=== PATIENT | male | born 1995 | race Caucasian/White ===

== ENCOUNTER 2017-01-27 13:26 | Emergency (ER) | payer SELFPAY ==
[~2017-01-27] VITALS: Ht 182.9 cm; Wt 86.2 kg
--- NOTE | 2017-01-27 14:37 | ED GI ---
General Chief Complaint: Rect Problems Stated Complaint: RECTAL BLEEDING Nursing Triage Note: Pt reports streaks of blood in stool and when wiping after BM for past 3 days Sepsis Screen: No Definite Risk Source of Information: Patient Exam Limitations: No Limitations History of Present Illness Time Seen By Provider: 14:27 Initial Comments Here with report of blood on toilet paper when wiping and pain on the area of his body. The rectum. States he feels a bump or a bubble at the rectum. Onset after heavy lifting yesterday at work. Denies hard stools or problems going to the bathroom otherwise. Timing/Duration: 2-3 Days Severity/Quality: Mild Location: Other (rectum) Radiation: No Radiation Activities at Onset: None Modifying Factors: Worsens With Defecating, Improves With Resting Associated Symptoms: No Back Pain, No Chest Pain, No Fever/Chills, No Nausea/ Vomiting Allergies and Home Medications Allergies Coded Allergies: No Known Drug Allergies (Unverified , 07/30/14) Home Medications No Active Prescriptions or Reported Meds Review of Systems Constitutional: see HPI, No chills, No fever Respiratory: No Symptoms Reported Cardiovascular: No Symptoms Reported Gastrointestinal: See HPI, Rectal Bleeding, Other (description of hemorrhoid) Genitourinary: No Symptoms Reported Past Mqrvqny-Hvdnsd-Kvabxz Hx Patient Social History Alcohol Use: Denies Use Recreational Drug Use: No Smoking Status: Never a Smoker Type Used: Smokeless Tobacco Recent Foreign Travel: No Contact w/Someone Who Travel: No Recent Infectious Disease Expo: No Recent Hopitalizations: No Immunizations Up To Date Tetanus Booster (TDap): Less than 5yrs PED Vaccines UTD: Yes Seasonal Allergies Seasonal Allergies: No Surgeries HX Surgeries: No Respiratory Hx Respiratory Disorders: No Cardiovascular Hx Cardiac Disorders: No Neurological Hx Neurological Disorders: No Genitourinary Hx Genitourinary Disorders: No Gastrointestinal Hx Gastrointestinal Disorders: No Musculoskeletal Hx Musculoskeletal Disorders: No Endocrine Hx Endocrine Disorders: No HEENT HX ENT Disorders: No Cancer Hx Cancer: No Psychosocial Hx Psychiatric Problems: No Integumentary HX Skin/Integumentary Disorder: No Blood Transfusions Hx Blood Disorders: No Reviewed Nursing Assessment Reviewed/Agree w Nursing PMH: Yes Family Medical History Significant Family History: No Pertinent Family Hx Physical Exam Vital Signs VS - Last 72 Hours, by Label 01/27/17 13:51 Temp 98.5 Pulse 68 Resp 18 B/P (MAP) 135/80 Pulse Ox 100 O2 Delivery Room Air Capillary Refill : Less Than 3 Seconds General Appearance: WD/WN, no apparent distress Neck: full range of motion, supple Respiratory: lungs clear, normal breath sounds Cardiovascular: regular rate, rhythm, no murmur Gastrointestinal: non tender, soft Rectal: hemorrhoids, tenderness, other (hemorrhoid to the right lateral aspect with some residual bleeding. Tender overall.) Neurologic/Psychiatric: alert, oriented x 3 Skin: normal color Progress/Results/Core Measures Results/Orders Vital Signs/I&O Vital Sign - Last 12Hours 01/27/17 13:51 Temp 98.5 Pulse 68 Resp 18 B/P (MAP) 135/80 Pulse Ox 100 O2 Delivery Room Air Blood Pressure Mean: 98 Progress Note : Progress Note Seen and evaluated. Evaluated external anus and noted hemorrhoid. Patient tender. Full rectal exam not performed due to tenderness. Hemorrhoids noted. We did discuss reoe-gpw-zjufdfi treatment for hemorrhoids. Discharged home with return precautions. Patient verbalize understanding of instructions and agreement with plan. Departure Impression Impression: Primary Impression: Hemorrhoids Qualified Codes: K64.9 - Unspecified hemorrhoids Disposition: HOME, SELF-CARE Condition: Stable Departure-Patient Inst. Decision time for Depature: 15:01 Referrals: NO,LOCAL PHYSICIAN (PCP/Family) Primary Care Physician Patient Instructions: Hemorrhoids (DC) Add. Discharge Instructions: All discharge instructions reviewed with patient and/or family. Voiced understanding. You may use jrnh-rdk-rmikuuc preparations such as Anusol HC or perforation H. Use per package directions. You may use tekc-tyt-yixclqq cleaning such as sitz baths or use shower sprayer to clean after bowel movement. This should heal on its own that you'll have residual bump for potentially life time. Return for worsening, fever, vomiting, weakness, breathing problems or other concerns as needed. It is important that he keep your stools soft by eating a high-fiber diet including fruits and vegetables. Follow up with your doctor as needed. Scripts No Active Prescriptions or Reported Meds ROMEO MOREJON MD Jan 27, 2017 14:37
[2017-01-27 15:05] VITALS: BP 128/70
== END 2017-01-27 15:05 | disposition home or self-care (01) ==
LOC: EDUNIT# 13:26 → ER 13:33
DX: K64.9 Unspecified hemorrhoids (principal)
CPT/HCPCS: 99283

== ENCOUNTER 2017-03-09 13:20 | Emergency (ER) | payer SELFPAY ==
[~2017-03-09] VITALS: Ht 195.6 cm; Wt 82.1 kg
--- NOTE | 2017-03-09 13:32 | ED GU-Male ---
General Stated Complaint: ABSCESS ON SCROTUM Source: patient Exam Limitations: no limitations History of Present Illness Time seen by provider: 13:30 Initial Comments To ER with left testicular pain is mild for the past 3 days. He has some mild burning on urination. Testicle itself feels very firm and has nodules on it and this concerned him. He first noticed these 3 days ago. Timing/Duration: other Severity/Quality: moderate Location: unknown Radiation: none Activities at Onset: none Prior Genitourinary Problems: none Associated Symptoms: denies symptoms Allergies and Home Medications Allergies Coded Allergies: No Known Drug Allergies (Unverified , 07/30/14) Home Medications No Active Prescriptions or Reported Meds Constitutional: see HPI EENTM: see HPI Respiratory: no symptoms reported Cardiovascular: no symptoms reported Genitourinary: see HPI Musculoskeletal: no symptoms reported Skin: no symptoms reported Psychiatric/Neurological: No Symptoms Reported Endocrine: No Symptoms Reported (O) Past Mwsqlwl-Imqalx-Hhxeog Hx Patient Social History Type Used: Smokeless Tobacco Recent Foreign Travel: No Contact w/Someone Who Travel: No Recent Hopitalizations: No Immunizations Up To Date Tetanus Booster (TDap): Less than 5yrs PED Vaccines UTD: Yes Seasonal Allergies Seasonal Allergies: No Surgeries History of Surgeries: No Respiratory History of Respiratory Disorde: No Cardiovascular History of Cardiac Disorders: No Neurological History of Neurological Disord: No Genitourinary History of Genitourinary Disor: No Gastrointestinal History of Gastrointestinal Di: No Musculoskeletal History of Musculoskeletal Dis: No Endocrine History of Endocrine Disorders: No HEENT History of HEENT Disorders: No Cancer History of Cancer: No Psychosocial History of Psychiatric Problem: No Integumentary History of Skin or Integumenta: No Blood Transfusions History of Blood Disorders: No Family Medical History Significant Family History: No Pertinent Family Hx Physical Exam Vital Signs Vital Sign - Last 12Hours 03/09/17 13:26 Temp 98.4 Pulse 67 Resp 18 B/P (MAP) 143/85 Pulse Ox 98 O2 Delivery Room Air Capillary Refill : General Appearance: WD/WN, no apparent distress HEENT: PERRL/EOMI, normal ENT inspection Neck: non-tender, full range of motion Respiratory: no respiratory distress, no accessory muscle use Gastrointestinal: normal bowel sounds, non tender Extremities: normal range of motion, non-tender Neurologic/Psychiatric: alert, normal mood/affect, oriented x 3 Skin: normal color, warm/dry Progress/Results/Core Measures Results/Orders Lab Results Laboratory Tests Test 03/09/17 13:41 03/09/17 14:22 Range/Units Urine Color YELLOW Urine Clarity CLEAR Urine pH 6.5 5-9 Urine Specific [place] 1.010 L 1.016-1.022 Urine Protein NEGATIVE NEGATIVE Urine Glucose (UA) NEGATIVE NEGATIVE Urine Ketones NEGATIVE NEGATIVE Urine Nitrite NEGATIVE NEGATIVE Urine Bilirubin NEGATIVE NEGATIVE Urine Urobilinogen NORMAL NORMAL MG/DL Urine Leukocyte Esterase 1+ H NEGATIVE Urine RBC (Auto) NEGATIVE NEGATIVE Urine RBC NONE /HPF Urine WBC 5-10 H /HPF Urine Crystals NONE /LPF Urine Bacteria TRACE /HPF Urine Casts NONE /LPF Urine Mucus SMALL H /LPF Urine Culture Indicated YES White Blood Count 5.9 4.3-11.0 10^3/uL Red Blood Count 5.18 4.35-5.85 10^6/uL Hemoglobin 14.5 13.3-17.7 G/DL Hematocrit 42 40-54 % Mean Corpuscular Volume 81 80-99 FL Mean Corpuscular Hemoglobin 28 25-34 PG Mean Corpuscular Hemoglobin Concent 35 32-36 G/DL Red Cell Distribution Width 12.9 10.0-14.5 % Platelet Count 218 130-400 10^3/uL Mean Platelet Volume 11.6 H 7.4-10.4 FL Neutrophils (%) (Auto) 65 42-75 % Lymphocytes (%) (Auto) 27 12-44 % Monocytes (%) (Auto) 7 0-12 % Eosinophils (%) (Auto) 0 0-10 % Basophils (%) (Auto) 0 0-10 % Neutrophils # (Auto) 3.9 1.8-7.8 X 10^3 Lymphocytes # (Auto) 1.6 1.0-4.0 X 10^3 Monocytes # (Auto) 0.4 0.0-1.0 X 10^3 Eosinophils # (Auto) 0.0 0.0-0.3 10^3/uL Basophils # (Auto) 0.0 0.0-0.1 10^3/uL Sodium Level 139 135-145 MMOL/L Potassium Level 3.7 3.6-5.0 MMOL/L Chloride Level 104 98-107 MMOL/L Carbon Dioxide Level 27 21-32 MMOL/L Anion Gap 8 5-14 MMOL/L Blood Urea Nitrogen 8 7-18 MG/DL Creatinine 0.86 0.60-1.30 MG/DL Estimat Glomerular Filtration Rate > 60 BUN/Creatinine Ratio 9 Glucose Level 99 70-105 MG/DL Calcium Level 9.4 8.5-10.1 MG/DL Total Bilirubin 0.8 0.1-1.0 MG/DL Aspartate Amino Transf (AST/SGOT) 8 5-34 U/L Alanine Aminotransferase (ALT/SGPT) 9 0-55 U/L Alkaline Phosphatase 72 40-136 U/L Total Protein 7.1 6.4-8.2 GM/DL Albumin 4.7 H 3.2-4.5 GM/DL My Orders Orders - CHANO HAMM APRN Us Scrotum (Testicle) [id number] (03/09/17 13:30) Ua Culture If Indicated (03/09/17 13:32) Urine Culture (03/09/17 13:41) Neis Edmond Dna Urine Test (03/09/17 14:01) Chlamydia Dna (03/09/17 14:01) Saline Lock/Iv-Start (03/09/17 14:15) Iohexol Injection (Omnipaque 350 Mg/Ml 1 (03/09/17 14:45) Ns (Ivpb) (Sodium Chloride 0.9% Ivpb Bag (03/09/17 14:45) Ct Chest/Abdomen/Pelvis W (03/09/17 14:36) Cbc With Automated Diff (03/09/17 15:05) Comprehensive Metabolic Panel (03/09/17 15:05) Medications Given in ED Current Medications Medications Dose Ordered Sig/Rhina Route Start Time Stop Time Status Last Admin Dose Admin Iohexol 100 ml ONCE ONCE IV 03/09/17 14:45 03/09/17 14:46 DC 03/09/17 14:51 100 ML Sodium Chloride 100 ml ONCE ONCE IV 03/09/17 14:45 03/09/17 14:46 DC 03/09/17 14:51 80 ML Vital Signs/I&O Vital Sign - Last 12Hours 03/09/17 13:26 Temp 98.4 Pulse 67 Resp 18 B/P (MAP) 143/85 Pulse Ox 98 O2 Delivery Room Air Diagnostic Imaging Diagonstic Imaging: Ultrasound Comments NAME: NATI VALADEZ MED REC#: [id number] PT STATUS: REG ER : 1995 PHYSICIAN: CHANO HAMM APRN ADMIT DATE: 03/09/17/ER Draft Date of Exam:03/09/17 US SCROTUM (Testicle) [id number] INDICATION: Scrotal abscess. FINDINGS: There is marked lobular heterogeneous hypoechogenicity with color Doppler blood flow essentially replacing the entirety of the left testicle, which measures 3.7 x 2.6 x 3.9 cm. This is strongly suggestive of neoplastic infiltration. There are multiple punctate echogenic foci within this testicle, which may reflect microlithiasis. The right testicle by contrast had a normal appearance with no mass, mass effect, or abnormal calcifications. There is a left epididymal head cyst/spermatocele measuring 1.4 cm. IMPRESSION: 1. 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 An incidental epididymal head cyst on the left noted. The right scrotal contents were negative. 2. Urological consultation recommended. Dictated on workstation # [id number] Dict: 03/09/17 1436 Trans: 03/09/17 1454 [id number] Interpreted by: JENNIFER CALLOWAY Electronically signed by: Departure Communication (Admissions) Progress Notes 1445- I did call the [facility] urology clinic. I advised that since the patient does not have insurance they will run him through the financial side of things up there and then the nurse navigator we'll call him with an appointment time either later today or tomorrow. They do have his contact information. I also discussed the diagnosis and plan with the patient's mother who lives in [facility]. This was with the patient's permission. Impression Impression: Primary Impression: Left testicular cancer Disposition: 01 HOME, SELF-CARE Condition: Stable Departure-Patient Inst. Referrals: NO,LOCAL PHYSICIAN (PCP/Family) Primary Care Physician Scripts No Active Prescriptions or Reported Meds CHANO HAMM APRN Mar 09, 2017 13:31
[2017-03-09 13:50] LABS: BILIRUBIN,URINE NEGATIVE (NEGATIVE); KETONES,URINE NEGATIVE (NEGATIVE); LEUKOCYTE ESTERASE ,URINE 1+ (NEGATIVE); NITRITE,URINE NEGATIVE (NEGATIVE); PH,URINE 6.5 (5-9); PROTEIN,URINE NEGATIVE (NEGATIVE); UROBILINOGEN,URINE NORMAL (NORMAL)
[2017-03-09] MEDS ORDERED: IOHEXOL 350 MG/ML 100 ML (OMNIPAQUE 350) VIAL IV ONE (14:45)
[2017-03-09] MEDS ORDERED: NS 100 ML (IVPB) BAG IV ONE (14:45)
--- NOTE | 2017-03-09 14:54 | Diagnostic Imaging Report ---
INDICATION: Scrotal abscess. FINDINGS: There is marked lobular heterogeneous hypoechogenicity with color Doppler blood flow essentially replacing the entirety of the left testicle, which measures 3.7 x 2.6 x 3.9 cm. This is strongly suggestive of neoplastic infiltration. There are multiple punctate echogenic foci within this testicle, which may reflect microlithiasis. The right testicle by contrast had a normal appearance with no mass, mass effect, or abnormal calcifications. There is a left epididymal head cyst/spermatocele measuring 1.4 cm. IMPRESSION: 1. 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 An incidental epididymal head cyst on the left noted. The right scrotal contents were negative. 2. Urological consultation recommended. Dictated by: Dictated on workstation # [id number]
[2017-03-09 15:10] LABS: BASOPHILS % (AUTO) 0 % (0-10); EOSINOPHILS % (AUTO) 0 % (0-10); LYMPHOCYTES # (AUTO) 1.6 X 10^3 (1.0-4.0); LYMPHOCYTES % (AUTO) 27 % (12-44); MEAN CORPUSCULAR HEMOGLOBIN 28 PG (25-34); MEAN CORPUSCULAR HGB CONC 35 G/DL (32-36); MEAN CORPUSCULAR VOLUME 81 FL (80-99); MEAN PLATELET VOLUME 11.6 FL (7.4-10.4); MONOCYTES # (AUTO) 0.4 X 10^3 (0.0-1.0); MONOCYTES % (AUTO) 7 % (0-12); NEUTROPHILS # (AUTO) 3.9 X 10^3 (1.8-7.8); NEUTROPHILS % (AUTO) 65 % (42-75); PLATELET COUNT 218 10^3/uL (130-400); RED BLOOD COUNT 5.18 10^6/uL (4.35-5.85); RED CELL DISTRIBUTION WIDTH 12.9 % (10.0-14.5); WHITE BLOOD COUNT 5.9 10^3/uL (4.3-11.0)
[2017-03-09 15:22] LABS: ALANINE AMINOTRANSFERASE 9 U/L (0-55); ALBUMIN 4.7 GM/DL (3.2-4.5); ANION GAP 8 MMOL/L (5-14); ASPARTATE AMINO TRANSFERASE 8 U/L (5-34); BILIRUBIN,TOTAL 0.8 MG/DL (0.1-1.0); BLOOD UREA NITROGEN 8 MG/DL (7-18); BUN/CREATININE RATIO 9; CALCIUM 9.4 MG/DL (8.5-10.1); CARBON DIOXIDE 27 MMOL/L (21-32); CHLORIDE 104 MMOL/L (98-107); CREATININE SERUM 0.86 MG/DL (0.60-1.30); GFR ESTIMATED > 60; GLUCOSE 99 MG/DL (70-105); POTASSIUM 3.7 MMOL/L (3.6-5.0); SODIUM 139 MMOL/L (135-145); TOTAL PROTEIN 7.1 GM/DL (6.4-8.2)
--- NOTE | 2017-03-09 15:22 | Diagnostic Imaging Report ---
PROCEDURE: CT chest, abdomen, and pelvis with contrast. TECHNIQUE: Multiple contiguous axial images were obtained through the chest, abdomen, and pelvis after the administration of intravenous contrast. INDICATION: Ultrasound findings highly suggestive of left testicular neoplasm. CT chest, abdomen, and pelvis performed as further evaluation. COMPARISON: No priors. FINDINGS: Chest: There is no dominant lung mass or suspicious pulmonary parenchymal nodules. There is no axillary, hilar, or mediastinal lymphadenopathy. There is no effusion or pneumothorax. No acute or suspicious soft tissue or osseous chest wall pathology. The lungs are clear. Nonaneurysmal aorta is patent and normal. Abdomen and pelvis: There is a retroperitoneal lymphadenopathy. The largest mass is left periaortic just inferior to the level of the left renal artery and vein. That mass measured 2.9 x 2.1 cm. More cephalad, a smaller node measured 1.3 cm in diameter. Caudal to the dominant mass was a 1.6 cm left periaortic node. Given the findings on ultrasound, this is suspicious for retroperitoneal metastatic disease. Few small subcentimeter lymph nodes along the fat of the mesenteric root are indeterminate. Liver, spleen, and adrenals are negative. The pancreas and gallbladder are negative. No adenopathy at the level of the aortic bifurcation. The bilateral common and external iliac chains were without lymphadenopathy. There are mild bilateral nodes in the inguinal canals bilaterally. On the right, the largest 1.8 x 1.1 cm and on the left the largest 1.5 x 1.1 cm. No suspicious osseous lesion. 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 There is no ascites. We note mild rectal constipation without evidence for bowel obstruction. Prostate, seminal vesicles, and urinary bladder had an unremarkable appearance. No bowel, biliary, or urinary tract obstruction. IMPRESSION: 1. Chest: Negative chest. In particular, no evidence for thoracic metastasis. 2. Abdomen: Periaortic retroperitoneal lymphadenopathy. Size of the nodes and their morphology worrisome for metastatic disease. Some shotty nodes along the mesenteric root, indeterminate. Negative liver. 3. Pelvis: Borderline bilateral inguinal adenopathy. No pelvic ascites. Mild rectal constipation without obstructive phenomenon. No suspicious osseous lesion. Chronic L5 benign spondylolysis defects noted. 4. The left periaortic retroperitoneal disease would be amenable to CT-guided percutaneous sampling, if clinically desired. Dictated by: Dictated on workstation # [id number]
[2017-03-09 15:34] VITALS: BP 143/85
== END 2017-03-09 15:33 | disposition home or self-care (01) ==
LOC: EDUNIT# 13:20 → ER 13:22
DX: C62.92 Malignant neoplasm of left testis, unspecified whether descended or undescended (principal)
CPT/HCPCS: 36415; 71260; 74177; 76870; 80053; 81000; 85025; 87088; 87491; 87591; 99283

== ENCOUNTER 2017-09-10 12:03 | Outpatient (RCR) | payer OTHER ==
[2017-11-06] MEDS ORDERED: CIPR500T4 PO (14:02)
[2017-11-06] MEDS ORDERED: PHEN-640 PO (14:02)
== END 2017-12-09 | disposition home or self-care (01) ==
LOC: ONC 12:03
PROVIDERS: ATTEND Internal Medicine Hematology & Oncology
DX: C62.12 Malignant neoplasm of descended left testis (principal); Z90.79 Acquired absence of other genital organ(s)
CPT/HCPCS: 99214

== ENCOUNTER → 2018-02-01 | Outpatient (CLI) | payer OTHER ==
[~2018-02-01] MED LIST: BARIUM SUSPENSION 2.1% (VANILLA SILQ) 450 ML PO ONE; CIPR500T4 PO; IOHEXOL 350 MG/ML 100 ML (OMNIPAQUE 350) VIAL IV ONE; NS 250 ML (IVPB) BAG IV ONE; PHEN-640 PO
--- NOTE | 2018-02-01 10:38 | Diagnostic Imaging Report ---
PROCEDURE: CT chest with contrast, CT abdomen and pelvis with and without contrast. INDICATION: Left-sided testicular carcinoma. TECHNIQUE: CT imaging of the abdomen before as well as the chest, abdomen and pelvis following the administration of intravenous contrast. CORRELATION STUDY: 11/06/2017, 03/09/2017 FINDINGS: CT CHEST: Some haziness throughout the anterior mediastinum is present, appearing changed from prior study. No pathologically enlarged mediastinal and/or hilar lymph nodes. Axilla unremarkable. Right-sided Mzgeuz-C-Kvwq catheter has been placed since prior study. It is noted that distal portions are looped within the inferior aspect of the internal jugular vein. Heart size normal. Lung woodall overall clear. No infiltrate or abnormal pulmonary nodule. Osseous structures demonstrate no acute abnormality. CT ABDOMEN and PELVIS: Liver, spleen, pancreas, gallbladder and adrenal glands are unremarkable. Abdominal aorta normal in contour. The kidneys with normal enhancement. There is no pathologically enlarged central extraperitoneal lymph nodes. A few shotty subcentimeter central peritoneal and mesenteric lymph nodes are present. Gastrointestinal tract demonstrates no obstruction or inflammation. Normal appendix right lower quadrant. Urinary bladder is somewhat decompressed and thick walled. Prostate gland and seminal vesicles appearing unremarkable. Enlarged bilateral inguinal lymph nodes persisting. Marker lymph node left inguinal region with fatty hilum measures 17 x 16 mm, previously 17 x 15 mm. Lymph node right at inguinal region 19 x 15 mm, previously 17 x 12 mm, 18 x 11 mm, slightly increased. Few small iliac lymph nodes appearing generally stable. There is nonacute-appearing particularis defect L5 level. No significant spondylolisthesis. Defect about the superior L4 endplate unchanged. IMPRESSION: CT CHEST: 1. No pathologically enlarged thoracic lymphadenopathy. 2. There is slight increased density suggested about the anterior mediastinal fat. This is nonspecific but is pretty be change from prior study. Followup evaluation is recommended as some germ cell malignancies can present in the anterior mediastinum. 3. A right-sided IJ Lvbznd-N-Canj catheter has been placed since prior study. Distal portions are looped within what appears to be low internal jugular vein. Imaging the paraspinal chest wall vessels are present. Extraluminal positioning of the tip of the catheter is not excluded. Correlation with function recommended. CT ABDOMEN and PELVIS: 1. Stable to perhaps very minimal increase in size of a bilateral inguinal lymph nodes. No definitive new or enlarging abdominal pelvic lymphadenopathy. Dictated by: Dictated on workstation # [id number]
== END ==
LOC: RAD 08:04
PROVIDERS: ATTEND Internal Medicine Hematology & Oncology
DX: C62.90 Malignant neoplasm of unspecified testis, unspecified whether descended or undescended (principal); Z95.9 Presence of cardiac and vascular implant and graft, unspecified
CPT/HCPCS: 71260; 74178

== ENCOUNTER 2018-02-04 10:01 | Outpatient (RCR) | payer OTHER ==
[2018-01-27 10:09] LABS: BASOPHILS % (AUTO) 0 % (0-10); EOSINOPHILS # (AUTO) 0.2 10^3/uL (0.0-0.3); EOSINOPHILS % (AUTO) 3 % (0-10); HEMATOCRIT 43 % (40-54); HEMOGLOBIN 14.6 G/DL (13.3-17.7); LYMPHOCYTES # (AUTO) 1.6 X 10^3 (1.0-4.0); LYMPHOCYTES % (AUTO) 28 % (12-44); MEAN CORPUSCULAR HEMOGLOBIN 28 PG (25-34); MEAN CORPUSCULAR HGB CONC 34 G/DL (32-36); MEAN CORPUSCULAR VOLUME 81 FL (80-99); MEAN PLATELET VOLUME 10.7 FL (7.4-10.4); MONOCYTES # (AUTO) 0.5 X 10^3 (0.0-1.0); MONOCYTES % (AUTO) 8 % (0-12); NEUTROPHILS # (AUTO) 3.5 X 10^3 (1.8-7.8); NEUTROPHILS % (AUTO) 61 % (42-75); PLATELET COUNT 196 10^3/uL (130-400); RED BLOOD COUNT 5.28 10^6/uL (4.35-5.85); RED CELL DISTRIBUTION WIDTH 13.4 % (10.0-14.5); WHITE BLOOD COUNT 5.7 10^3/uL (4.3-11.0)
[2018-01-27 10:30] LABS: ALANINE AMINOTRANSFERASE 19 U/L (0-55); ALBUMIN 4.5 GM/DL (3.2-4.5); ALKALINE PHOSPHATASE 83 U/L (40-136); BILIRUBIN,TOTAL 0.6 MG/DL (0.1-1.0); BUN/CREATININE RATIO 13; CALCIUM 9.3 MG/DL (8.5-10.1); CARBON DIOXIDE 25 MMOL/L (21-32); CHLORIDE 107 MMOL/L (98-107); CREATININE SERUM 0.87 MG/DL (0.60-1.30); GFR ESTIMATED > 60; POTASSIUM 3.7 MMOL/L (3.6-5.0); SODIUM 140 MMOL/L (135-145); TOTAL PROTEIN 6.8 GM/DL (6.4-8.2)
[2018-01-27 10:39] LABS: GLUCOSE 48 MG/DL (70-105)
[~2018-02-04 10:01] MED LIST changes: -BARIUM SUSPENSION 2.1% (VANILLA SILQ) 450 ML PO ONE; -IOHEXOL 350 MG/ML 100 ML (OMNIPAQUE 350) VIAL IV ONE; -NS 250 ML (IVPB) BAG IV ONE
== END 2018-02-18 | disposition home or self-care (01) ==
LOC: ONC 10:01
PROVIDERS: ATTEND Internal Medicine Hematology & Oncology
DX: C62.12 Malignant neoplasm of descended left testis (principal); Z90.79 Acquired absence of other genital organ(s); Z45.2 Encounter for adjustment and management of vascular access device
CPT/HCPCS: 80053; 82105; 83615; 84702; 85025; 96523; 99213

== ENCOUNTER → 2018-04-25 | Outpatient (CLI) | payer OTHER ==
[~2018-04-25] MED LIST changes: +BARIUM SUSPENSION 2.1% (VANILLA SILQ) 450 ML PO ONE; +IOHEXOL 350 MG/ML 100 ML (OMNIPAQUE 350) VIAL IV ONE; +NS 250 ML (IVPB) BAG IV ONE; +RECEIVED CONTRAST (Hold Metformin) IV SCH
--- NOTE | 2018-04-25 17:43 | Diagnostic Imaging Report ---
PROCEDURE: CT chest with contrast, CT abdomen and pelvis with and without contrast. TECHNIQUE: Pre and post intravenous contrast axial imaging of the abdomen and pelvis and post contrast axial imaging of the chest were performed. INDICATION: Testicular seminoma. Followup. COMPARISON: 02/01/2018 FINDINGS: CT CHEST: Evaluation of the cardiomediastinal structures again demonstrates prominent soft tissue density within anterosuperior mediastinum suggestive of residual thymic tissue or possible thymic hyperplasia. Heart size is within normal limits. There is no large pericardial effusion. No pathologically enlarged or morphologically abnormal adenopathy is seen within the mediastinum, magdi, nor axilla. Evaluation of the lung woodall demonstrates no focal consolidation, pleural effusion, nor pneumothorax. There is mild image degradation secondary to respiratory motion artifact, but no suspicious pulmonary nodules or masses are seen on today's exam. Bony structures show no acute abnormalities. No lytic or blastic osseous lesions are seen. CT ABDOMEN: Small bowel loops are nondistended. Normal appendix is identified. The kidneys, adrenal glands, spleen, and pancreas have a normal CT appearance. There is a small hypoenhancing focus within the right lobe of the liver near the junction of segments 6 and 7 measuring approximately 6-7 mm in diameter (image 56, series 3). Although too small to adequately characterize based on this exam, it is stable compared to prior studies. Liver is otherwise unremarkable as well. No abnormal mesenteric or retroperitoneal adenopathy is seen. There is no loculated fluid collection, free fluid, nor free air within the abdomen. Bony structures show no acute abnormalities. CT PELVIS: Urinary bladder is unopacified and essentially decompressed. No calculi are seen within the urinary bladder. There is no loculated fluid collection, free fluid, nor free air within the pelvis. No abnormal lymph nodes are identified. Bony structures show no acute abnormalities. Bilateral L5 pars defects are noted. IMPRESSION: 1. Stable CT of the chest. Again, there is prominent soft tissue density within the anterosuperior mediastinum, which may be on the basis of residual thymic tissue or possible thymic hyperplasia. 2. No adverse interval change within the chest. 3. Small hypodensity within the right lobe of the liver. Again this is too small to adequately characterize based on prior exam. Conceivably, this could represent a small cyst. It is stable when compared to prior exams. 4. No adverse interval change within the abdomen or pelvis. 5. Bilateral L5 pars defects. Dictated by: Dictated on workstation # [id number]
== END ==
LOC: RAD 12:31
PROVIDERS: ATTEND Internal Medicine Hematology & Oncology
DX: C62.90 Malignant neoplasm of unspecified testis, unspecified whether descended or undescended (principal); J98.4 Other disorders of lung; K76.89 Other specified diseases of liver; M48.8X6 Other specified spondylopathies, lumbar region
CPT/HCPCS: 71260; 74178

== ENCOUNTER 2018-05-06 10:18 | Outpatient (RCR) | payer OTHER ==
[2018-04-29 09:26] LABS: BASOPHILS % (AUTO) 0 % (0-10); EOSINOPHILS # (AUTO) 0.1 10^3/uL (0.0-0.3); EOSINOPHILS % (AUTO) 2 % (0-10); HEMATOCRIT 39 % (40-54); HEMOGLOBIN 13.2 G/DL (13.3-17.7); LYMPHOCYTES # (AUTO) 1.8 X 10^3 (1.0-4.0); LYMPHOCYTES % (AUTO) 35 % (12-44); MEAN CORPUSCULAR HEMOGLOBIN 28 PG (25-34); MEAN CORPUSCULAR HGB CONC 34 G/DL (32-36); MEAN CORPUSCULAR VOLUME 81 FL (80-99); MONOCYTES # (AUTO) 0.4 X 10^3 (0.0-1.0); MONOCYTES % (AUTO) 8 % (0-12); NEUTROPHILS # (AUTO) 2.8 X 10^3 (1.8-7.8); NEUTROPHILS % (AUTO) 56 % (42-75); PLATELET COUNT 99 10^3/uL (130-400); RED CELL DISTRIBUTION WIDTH 13.6 % (10.0-14.5); WHITE BLOOD COUNT 5.1 10^3/uL (4.3-11.0)
[2018-04-29 09:49] LABS: ALANINE AMINOTRANSFERASE 17 U/L (0-55); ALBUMIN 4.6 GM/DL (3.2-4.5); ALKALINE PHOSPHATASE 100 U/L (40-136); BILIRUBIN,TOTAL 0.8 MG/DL (0.1-1.0); BUN/CREATININE RATIO 11; CALCIUM 9.7 MG/DL (8.5-10.1); CARBON DIOXIDE 26 MMOL/L (21-32); CHLORIDE 105 MMOL/L (98-107); GFR ESTIMATED > 60; GLUCOSE 88 MG/DL (70-105); POTASSIUM 3.5 MMOL/L (3.6-5.0); SODIUM 140 MMOL/L (135-145); TOTAL PROTEIN 7.4 GM/DL (6.4-8.2)
[~2018-05-06 10:18] MED LIST changes: -BARIUM SUSPENSION 2.1% (VANILLA SILQ) 450 ML PO ONE; -IOHEXOL 350 MG/ML 100 ML (OMNIPAQUE 350) VIAL IV ONE; -NS 250 ML (IVPB) BAG IV ONE; -RECEIVED CONTRAST (Hold Metformin) IV SCH
[2018-05-06 10:39] LABS: BASOPHILS % (AUTO) 0 % (0-10); EOSINOPHILS # (AUTO) 0.1 10^3/uL (0.0-0.3); EOSINOPHILS % (AUTO) 2 % (0-10); HEMATOCRIT 41 % (40-54); HEMOGLOBIN 13.9 G/DL (13.3-17.7); LYMPHOCYTES % (AUTO) 33 % (12-44); MEAN CORPUSCULAR HEMOGLOBIN 27 PG (25-34); MEAN CORPUSCULAR HGB CONC 34 G/DL (32-36); MEAN CORPUSCULAR VOLUME 80 FL (80-99); MEAN PLATELET VOLUME 10.3 FL (7.4-10.4); MONOCYTES # (AUTO) 0.5 X 10^3 (0.0-1.0); MONOCYTES % (AUTO) 8 % (0-12); NEUTROPHILS # (AUTO) 3.4 X 10^3 (1.8-7.8); NEUTROPHILS % (AUTO) 56 % (42-75); PLATELET COUNT 215 10^3/uL (130-400); RED CELL DISTRIBUTION WIDTH 13.8 % (10.0-14.5)
[2018-07-27 12:08] LABS: BASOPHILS % (AUTO) 0 % (0-10); EOSINOPHILS # (AUTO) 0.1 10^3/uL (0.0-0.3); EOSINOPHILS % (AUTO) 2 % (0-10); HEMATOCRIT 41 % (40-54); HEMOGLOBIN 14.3 G/DL (13.3-17.7); LYMPHOCYTES # (AUTO) 1.9 X 10^3 (1.0-4.0); LYMPHOCYTES % (AUTO) 37 % (12-44); MEAN CORPUSCULAR HEMOGLOBIN 28 PG (25-34); MEAN CORPUSCULAR HGB CONC 35 G/DL (32-36); MEAN CORPUSCULAR VOLUME 80 FL (80-99); MONOCYTES # (AUTO) 0.4 X 10^3 (0.0-1.0); MONOCYTES % (AUTO) 8 % (0-12); NEUTROPHILS # (AUTO) 2.8 X 10^3 (1.8-7.8); NEUTROPHILS % (AUTO) 54 % (42-75); PLATELET COUNT 196 10^3/uL (130-400); RED CELL DISTRIBUTION WIDTH 13.3 % (10.0-14.5); WHITE BLOOD COUNT 5.2 10^3/uL (4.3-11.0)
[2018-07-27 12:26] LABS: ALANINE AMINOTRANSFERASE 17 U/L (0-55); ALBUMIN 4.4 GM/DL (3.2-4.5); ALKALINE PHOSPHATASE 106 U/L (40-136); BILIRUBIN,TOTAL 0.8 MG/DL (0.1-1.0); BUN/CREATININE RATIO 10; CALCIUM 9.3 MG/DL (8.5-10.1); CARBON DIOXIDE 25 MMOL/L (21-32); CHLORIDE 105 MMOL/L (98-107); CREATININE SERUM 0.89 MG/DL (0.60-1.30); GFR ESTIMATED > 60; GLUCOSE 78 MG/DL (70-105); POTASSIUM 3.5 MMOL/L (3.6-5.0); SODIUM 139 MMOL/L (135-145); TOTAL PROTEIN 6.8 GM/DL (6.4-8.2)
== END 2018-07-27 11:38 | disposition home or self-care (01) ==
LOC: ONC 10:18
PROVIDERS: ATTEND Internal Medicine Hematology & Oncology
DX: C62.12 Malignant neoplasm of descended left testis (principal); Z90.79 Acquired absence of other genital organ(s); D69.6 Thrombocytopenia, unspecified; E66.9 Obesity, unspecified; Z68.33 Body mass index [BMI] 33.0-33.9, adult
CPT/HCPCS: 36415; 36591; 80053; 82105; 83615; 84702; 85025

== ENCOUNTER 2018-08-03 16:09 | Outpatient (RCR) | payer OTHER ==
[2018-08-15] MEDS ORDERED: ACHD5005 PO (09:58)
== END 2018-10-25 | disposition home or self-care (01) ==
LOC: ONC 16:09
PROVIDERS: ATTEND Internal Medicine Hematology & Oncology
DX: C62.12 Malignant neoplasm of descended left testis (principal); Z90.79 Acquired absence of other genital organ(s); D69.6 Thrombocytopenia, unspecified; M48.8X6 Other specified spondylopathies, lumbar region
CPT/HCPCS: 99213

== ENCOUNTER 2018-08-12 09:31 | Outpatient (CLI) | payer SELFPAY ==
[~2018-08-12] VITALS: Ht 185.4 cm; Wt 90.7 kg
== END 2018-08-12 11:51 ==
LOC: PREOP 09:31
PROVIDERS: ATTEND Surgery
DX: Z01.818 Encounter for other preprocedural examination (principal)

== ENCOUNTER 2018-08-15 07:31 | Day surgery (SDC) | payer OTHER ==
[~2018-08-15] VITALS: Ht 185.4 cm; Wt 90.7 kg
[2018-08-15] MEDS ORDERED: LACTATED RINGERS 1,000 ML IV PRN (07:41)
[2018-08-15] MEDS ORDERED: ceFAZolin 2 GM IV Premixed 50 ML IV ONE (07:45)
[2018-08-15 07:50] VITALS: BP 136/82
[2018-08-15] MEDS ORDERED: LIDOCAINE 1% INJ 20 ML 20 ML VIAL ONE (09:02)
[2018-08-15] MEDS ORDERED: BUP/EPI 0.5% 1:200,000 (SENSORCAINE) 30 ML VIAL ONE (09:02)
--- NOTE | 2018-08-15 09:18 | Progress Note-Pre Operative ---
Pre-Operative Progress Note H&P Reviewed The H&P was reviewed, patient examined and no changes noted. Time Seen by Provider: 09:16 Date H&P Reviewed: Aug 15, 2018 Time H&P Reviewed: 09:17 Pre-Operative Diagnosis: venous insufficiency, hx of testicular cancer NIDIA OCAMPO DO Aug 15, 2018 09:18
[2018-08-15] MEDS ORDERED: MIDAZOLAM 2 MG/2 ML (VERSED) VIAL ONE ×2 (09:21→09:28)
[2018-08-15] MEDS ORDERED: PROPOFOL INJECTION 50 ML IV ONE (09:21)
--- NOTE | 2018-08-15 09:57 | Progress Note-Post Operative ---
Post-Operative Progess Note Surgeon (s)/Battery Wrecker Operator (s) Surgeon NIDIA OCAMPO DO Battery Wrecker Operator: none Pre-Operative Diagnosis venous insufficiency, hx of testicular cancer Post-Operative Diagnosis same plus scar Procedure & Operative Findings Date of Procedure 08/15/18 Procedure Performed/Findings Samson-cath removal Scar revision Anesthesia Type MAC Estimated Blood Loss Estimated blood loss (mL): scant Specimens/Packing Specimens Removed scar NIDIA OCAMPO DO Aug 15, 2018 09:57
[2018-08-15] MEDS ORDERED: ACHD5005 PO ×2 (09:58)
--- NOTE | 2018-08-15 09:59 | Discharge Inst-Surgical ---
Discharge Inst-Surgical Depart Medication/Instructions New, Converted or Re-Newed RX: RX Given to Pt/Family Patient Instructions Follow up Appt: Make appointment for 1 week. [phone] Instructions: May shower in 24 hours, no tub bath or soaking. Use incentive spirometer at home as directed. No Smoking Skin/Wound Care: May remove bandages in am. You need to leave the Dermabond on incision it will fall off on it's own. Symptoms to Report: Appetite Changes, Extremity Discoloration, Numbness/Tingling, Swelling Increased , Bleeding Excessive, Eyesight Changes, Pain Increased, Urine Color Change, Constipation(Persistent), Fever over 101 degree F, Pain/Pressure in chest, Urinating Difficulty, Cough Up/Vomit Blood, Heart Beat Irreg/Pounding, Pain/ Pressure in jaw, Cramps in feet or legs, Lightheadedness, Pain/Pressure in shoulder, Diarrhea(Persistent), Memory Changes Suddenly, Questions/Concerns, Weight gain consecutive days, Dizziness/Fainting, Nausea/Vomiting, Shortness of Breath, Weight gain over 2 pounds If questions or concerns contact your physician Or seek help at emergency department. Activity Activity Instructions: Avoid Pulling & Pushing, Avoid Stress to Incision Driving Instructions: No Driving/Refer to Dr. Crenshaw Discharge Diet: No Restrictions Diet After 24 Hours: Clear Liquid if Nauseous If Any Problems/Questions/Issu: Contact Your Physician Skin/Wound Care Infection Signs and Symptoms: Increased Redness, Foul Odor of Wound, Increased Drainage, Skin Itchy or Has a Rash, Increased Swelling, Temperature Above 101 F Bathing Instructions: Shower Stitches/Fatuma/Dermabond Dis: Dermabond Ice Pack: Ice On and Off Site NIDIA OCAMPO DO Aug 15, 2018 09:59
[2018-08-15 10:25] VITALS: BP 127/76
[2018-08-15 10:54] VITALS: BP 135/77
[2018-08-15 11:07] VITALS: BP 135/77
--- NOTE | 2018-08-15 22:48 | OPERATIVE REPORT ---
DATE OF SERVICE: PREOPERATIVE DIAGNOSES: 1. Venous insufficiency. 2. Scar. POSTOPERATIVE DIAGNOSES: 1. Venous insufficiency. 2. Scar. PROCEDURES: 1. Port-A-Cath removal. 2. Scar revision of approximately after a 7 mm wide x 4.5 cm long scar. SURGEON: Ariel Lunsford DO. CIRCUIT BREAKER MECHANIC: None. ANESTHESIA: IV sedation by the CIVIL ENGINEERING INTERN. SPECIMEN: Scar. BLOOD LOSS: Scant. FLUIDS: Per anesthesia. POSTOPERATIVE CONDITION: Stable. INDICATION FOR PROCEDURE: The patient is a 23-year-old male who unfortunately has a history of testicular cancer had a port placed for chemotherapy no longer needs his port. He also now has a scar has widened looks little bit ugly and going to get this revised. FINDINGS: The patient had a scar revision performed measured about 5.3 cm x about 1 cm wide Port-A-Cath removed without difficulty. PROCEDURE NOTE: After informed consent was obtained, the patient was brought to the brought to the operating room, placed on the table in supine position. He was sterilely prepped and draped in normal fashion. Local lidocaine was used to infiltrate around the scar as well as down to the Port-A-Cath. I then made an elliptical incision to remove the scar and carried down through the skin into the subcutaneous tissue. It measured about 5.3 cm long and was cm wide. Removed this skin and scar tissue passed this off the table and then dissected down to the Port-A-Cath and then able to take a cut out the Port-A-Cath and removed this and the catheter en bloc came out nicely. Hemostasis was obtained using Bovie electrocautery. Copiously irrigated with normal saline, suctioned this out and then elected to close the incision closing with two layers, closing the deep tissue with 3-0 Vicryl for ruptured suture and then closed the skin with 4-0 undyed Monocryl in subcuticular fashion. Area was cleaned and dried and the patient was then transferred to recovery room in stable condition. Sponge, instrument and needle count were correct at the end of the case. Dermabond was also placed. Job ID: [id number] DocumentID: [id number] Dictated Date: 08/15/2018 15:01:07 Ict Programmer Date: 08/15/2018 22:47:25 Dictated By: ARIEL LUNSFORD DO
== END 2018-08-15 11:05 | disposition home or self-care (01) ==
LOC: SDC 07:31
PROVIDERS: ATTEND Surgery
DX: I87.2 Venous insufficiency (chronic) (peripheral) (principal); L90.5 Scar conditions and fibrosis of skin; Z11.2 Encounter for screening for other bacterial diseases; Z85.47 Personal history of malignant neoplasm of testis; F17.220 Nicotine dependence, chewing tobacco, uncomplicated
CPT/HCPCS: 87081

== ENCOUNTER 2019-02-03 14:59 | Outpatient (RCR) | payer OTHER ==
[2019-01-30 13:47] LABS: BASOPHILS % (AUTO) 0 % (0-10); EOSINOPHILS # (AUTO) 0.1 10^3/uL (0.0-0.3); EOSINOPHILS % (AUTO) 1 % (0-10); HEMATOCRIT 45 % (40-54); HEMOGLOBIN 15.4 G/DL (13.3-17.7); LYMPHOCYTES # (AUTO) 1.5 X 10^3 (1.0-4.0); LYMPHOCYTES % (AUTO) 26 % (12-44); MEAN CORPUSCULAR HEMOGLOBIN 28 PG (25-34); MEAN CORPUSCULAR HGB CONC 34 G/DL (32-36); MEAN CORPUSCULAR VOLUME 81 FL (80-99); MEAN PLATELET VOLUME 11.1 FL (7.4-10.4); MONOCYTES # (AUTO) 0.4 X 10^3 (0.0-1.0); MONOCYTES % (AUTO) 7 % (0-12); NEUTROPHILS # (AUTO) 3.8 X 10^3 (1.8-7.8); NEUTROPHILS % (AUTO) 66 % (42-75); PLATELET COUNT 209 10^3/uL (130-400); RED CELL DISTRIBUTION WIDTH 13.7 % (10.0-14.5); WHITE BLOOD COUNT 5.8 10^3/uL (4.3-11.0)
[2019-01-30 14:09] LABS: ALANINE AMINOTRANSFERASE 13 U/L (0-55); ALKALINE PHOSPHATASE 113 U/L (40-136); BILIRUBIN,TOTAL 0.8 MG/DL (0.1-1.0); BUN/CREATININE RATIO 8; CALCIUM 10.1 MG/DL (8.5-10.1); CARBON DIOXIDE 25 MMOL/L (21-32); CHLORIDE 106 MMOL/L (98-107); CREATININE SERUM 1.11 MG/DL (0.60-1.30); GFR ESTIMATED > 60; GLUCOSE 95 MG/DL (70-105); POTASSIUM 3.7 MMOL/L (3.6-5.0); SODIUM 142 MMOL/L (135-145); TOTAL PROTEIN 8.2 GM/DL (6.4-8.2)
--- NOTE | 2019-01-30 16:55 | Diagnostic Imaging Report ---
INDICATION: Seminoma. TIME OF EXAM: 2:29 p.m. COMPARISON: Comparison is made with prior chest from 07/30/2014. FINDINGS: The heart size is normal. The lungs are clear. No masses or infiltrates are seen. There is no effusion or pneumothorax. IMPRESSION: Unremarkable chest. Dictated by: Dictated on workstation # [id number]
[~2019-02-03 14:59] MED LIST changes: +ACHD5005 PO
== END 2019-04-30 | disposition home or self-care (01) ==
LOC: ONC 14:59
PROVIDERS: ATTEND Internal Medicine Hematology & Oncology
DX: C62.12 Malignant neoplasm of descended left testis (principal); Z90.79 Acquired absence of other genital organ(s); D69.6 Thrombocytopenia, unspecified; M48.8X6 Other specified spondylopathies, lumbar region
CPT/HCPCS: 36415; 71046; 80053; 82105; 83615; 84702; 85025; 99213

== ENCOUNTER → 2019-02-09 | Outpatient (CLI) | payer OTHER ==
[~2019-02-09] MED LIST changes: +HOLD METFORMIN - RECEIVED CONTRAST 20 ML VIAL IV SCH; +IOHEXOL 350 MG/ML 100 ML (OMNIPAQUE 350) VIAL IV ONE; +NS 100 ML (IVPB) BAG IV ONE
--- NOTE | 2019-02-09 14:55 | Diagnostic Imaging Report ---
PROCEDURE: CT abdomen and pelvis with and without contrast. TECHNIQUE: Precontrast acquisitions were acquired through the abdomen and pelvis. Multiple contiguous axial images were obtained through the abdomen and pelvis after the administration of intravenous contrast. Auto Exposure Controls were utilized during the CT exam to meet ALARA standards for radiation dose reduction. INDICATION: Testicular carcinoma, followup. COMPARISON: Correlation is made with prior CT from 04/25/2018. FINDINGS: The lung bases are clear. Tiny density in the posterior right lobe of the liver appears to be stable. No new liver mass is identified. Gallbladder is unremarkable. There is no biliary ductal dilatation. The pancreas and spleen are unremarkable. No adrenal mass is detected. Kidneys are unremarkable. No calculi or hydronephrosis is detected. The aorta is non-aneurysmal. No central retroperitoneal or mesenteric lymphadenopathy is detected. The small and large bowel loops are normal in caliber. No obstruction is seen. Appendix is unremarkable. Small lymph nodes medial to the cecum are stable. There is no ascites. The bladder and prostate are unremarkable. Bilateral inguinal lymph nodes appear to be stable. No iliac lymphadenopathy is seen. Bilateral pars defects at L5-S1 are again seen. No acute feature is detected. IMPRESSION: Overall stable CT of the abdomen and pelvis when compared with prior CT from 04/25/2018. No abdominal or pelvic lymphadenopathy or evidence of metastatic disease is detected. Dictated by: Dictated on workstation # [id number]
--- NOTE | 2019-02-09 15:06 | Diagnostic Imaging Report ---
PROCEDURE: CT head with and without contrast. TECHNIQUE: Multiple contiguous axial images were obtained through the brain before and after the administration of intravenous contrast. Auto Exposure Controls were utilized during the CT exam to meet ALARA standards for radiation dose reduction. INDICATION: Testicular carcinoma and headaches. COMPARISON: No prior studies are available for comparison. FINDINGS: The ventricles and sulci are within normal limits. No sulcal effacement or midline shift is identified. No acute intra-axial or extra-axial hemorrhage is detected. No enhancing lesions are identified on the postcontrast images. Cisterns are patent. Visualized paranasal sinuses are clear. IMPRESSION: Unremarkable pre- and postcontrast CT of the brain. Dictated by: Dictated on workstation # [id number]
== END ==
LOC: RAD 13:28
PROVIDERS: ATTEND Internal Medicine Hematology & Oncology
DX: Z01.89 Encounter for other specified special examinations (principal); C62.90 Malignant neoplasm of unspecified testis, unspecified whether descended or undescended; R51 Headache
CPT/HCPCS: 70470; 74178

== ENCOUNTER 2019-05-04 13:53 | Emergency (ER) | payer OTHER ==
[~2019-05-04] VITALS: Ht 187.9 cm; Wt 104.5 kg
[~2019-05-04 13:53] MED LIST changes: -HOLD METFORMIN - RECEIVED CONTRAST 20 ML VIAL IV SCH; -IOHEXOL 350 MG/ML 100 ML (OMNIPAQUE 350) VIAL IV ONE; -NS 100 ML (IVPB) BAG IV ONE
[2019-05-04] MEDS ORDERED: ASPIRIN 81 MG CHEW (CHILDREN'S ASA) ONE (13:54)
[2019-05-04] MEDS ORDERED: NITROGLYCERIN 0.4 MG SL TABS BTL 25'S SL ONE (13:58)
[2019-05-04] MEDS: NITROGLYCERIN 0.4 MG SL TABS BTL 25'S SL PRN ×2 (14:00→14:45)
[2019-05-04] MEDS ORDERED: ASPIRIN 81 MG CHEW (CHILDREN'S ASA) PO ONE (14:00)
--- NOTE | 2019-05-04 14:06 | ED Chest Pain ---
General Stated Complaint: CHEST PAIN Source: patient Exam Limitations: no limitations History of Present Illness Date Seen by Provider: May 04, 2019 Time Seen by Provider: 13:50 Initial Comments Patient presents to ER by private conveyance with chief complaint of chest pain since about 2100 yesterday intermittent. The pain will go anywhere from a 5-10. He feels this in the left side of his chest substernal and sharp stabbing sensation. Reproducible to direct palpation. Does not causing her shortness of having a cough fever chills runny nose sore throat nausea sweats or abdominal pain. He is followed by Dr. Lazcano, oncology S/P chemotherapy and orchiectomy for testicular cancer. Does not have any other significant medical history. No p rimary familial history of early-onset coronary disease. No sudden cardiac history in the family. He's been told by oncology he has high blood pressure but he does not follow by primary care doctor nor does he take medication for this. He denies a history of diabetes, hypercholesterol, coronary disease, heart disease etc. He does not smoke but he uses chew about a can per day. He does not use recreational drugs but drinks about 6 beers in one setting once a week. Allergies and Home Medications Allergies Coded Allergies: No Known Drug Allergies (Unverified , 07/30/14) Home Medications Hydrocodone Bit/Acetaminophen 1 Tab Tab, 1 TAB PO Q6H PRN for PAIN-MODERATE Prescribed by: NIDIA OCAMPO on 08/15/18 0958 Patient Home Medication List Home Medication List Reviewed: Yes Review of Systems Review of Systems Constitutional: No chills, No diaphoresis EENTM: No Blurred Vision, No Double Vision Respiratory: Denies Cough, Denies Shortness of Air, Denies Wheezing Cardiovascular: See HPI, Chest Pain; Denies Edema, Denies Irregular Heart Rate Gastrointestinal: See HPI; Denies Abdominal Pain, Denies Constipated, Denies Diarrhea Genitourinary: Denies Burning, Denies Discharge Musculoskeletal: No back pain, No joint pain All Other Systems Reviewed Negative Unless Noted: Yes Past Lxzcjcs-Azibad-Xphhex Hx Patient Social History Alcohol Use: Occasionally Uses (once a week) Alcohol Beverage of Choice: Beer (6 beers a week) Recreational Drug Use: No Smoking Status: Never a Smoker Type Used: Smokeless Tobacco (1 can per day) 2nd Hand Smoke Exposure: No Recent Hopitalizations: No Immunizations Up To Date Tetanus Booster (TDap): Less than 5yrs PED Vaccines UTD: Yes Seasonal Allergies Seasonal Allergies: No Past Medical History Surgeries: Yes (port) Testicular Respiratory: No Cardiac: No Neurological: No Genitourinary: No Gastrointestinal: No Musculoskeletal: No Endocrine: No HEENT: No Cancer: Yes Testicular What Type of Treatment Did You: Chemotherapy, Surgical Intervention Psychosocial: No Integumentary: No Blood Disorders: No Family Medical History No Pertinent Family Hx Physical Exam Vital Signs Vital Signs - First Documented 05/04/19 13:53 Temp 37.0 Pulse 75 Resp 18 B/P (MAP) 135/97 (110) Pulse Ox 98 O2 Delivery Room Air Capillary Refill : Height, Weight, BMI Height: 6'1.00" Weight: 200lbs. 0.0oz. 90.142605tr; 26.4 BMI Method:Stated General Appearance: WD/WN, Mild Distress HEENT: PERRL/EOMI, Pharynx Normal, Moist Mucous Membranes Neck: Full Range of Motion, Normal Inspection Respiratory: No Chest Non Tender (chest pain reproducible to direct palpation over the left chest.); Lungs Clear, Normal Breath Sounds, No Accessory Muscle Use, No Respiratory Distress, Other (negative for crepitus or deformity) Cardiovascular: Regular Rate, Rhythm, No Edema, Normal Peripheral Pulses Gastrointestinal: Normal Bowel Sounds, Non Tender, Soft Extremity: Normal Capillary Refill, Normal Inspection, No Pedal Edema Neurologic/Psychiatric: Alert, Oriented x3, No Motor/Sensory Deficits Skin: Normal Color, Warm/Dry Progress/Results/Core Measures Results/Orders Lab Results Laboratory Tests Test 05/04/19 14:00 05/04/19 15:57 Range/Units White Blood Count 5.9 4.3-11.0 10^3/uL Red Blood Count 5.58 4.35-5.85 10^6/uL Hemoglobin 14.9 13.3-17.7 G/DL Hematocrit 44 40-54 % Mean Corpuscular Volume 79 L 80-99 FL Mean Corpuscular Hemoglobin 27 25-34 PG Mean Corpuscular Hemoglobin Concent 34 32-36 G/DL Red Cell Distribution Width 13.5 10.0-14.5 % Platelet Count 220 130-400 10^3/uL Mean Platelet Volume 11.1 H 7.4-10.4 FL Neutrophils (%) (Auto) 65 42-75 % Lymphocytes (%) (Auto) 26 12-44 % Monocytes (%) (Auto) 8 0-12 % Eosinophils (%) (Auto) 1 0-10 % Basophils (%) (Auto) 0 0-10 % Neutrophils # (Auto) 3.8 1.8-7.8 X 10^3 Lymphocytes # (Auto) 1.5 1.0-4.0 X 10^3 Monocytes # (Auto) 0.4 0.0-1.0 X 10^3 Eosinophils # (Auto) 0.1 0.0-0.3 10^3/uL Basophils # (Auto) 0.0 0.0-0.1 10^3/uL Prothrombin Time 12.7 12.2-14.7 SEC INR Comment 0.9 0.8-1.4 Activated Partial Thromboplast Time 26 24-35 SEC D-Dimer < 0.27 0.00-0.49 UG/ML Sodium Level 141 135-145 MMOL/L Potassium Level 3.7 3.6-5.0 MMOL/L Chloride Level 106 98-107 MMOL/L Carbon Dioxide Level 24 21-32 MMOL/L Anion Gap 11 5-14 MMOL/L Blood Urea Nitrogen 11 7-18 MG/DL Creatinine 0.95 0.60-1.30 MG/DL Estimat Glomerular Filtration Rate > 60 BUN/Creatinine Ratio 12 Glucose Level 99 70-105 MG/DL Calcium Level 9.4 8.5-10.1 MG/DL Corrected Calcium 8.5-10.1 MG/DL Magnesium Level 2.2 1.6-2.4 MG/DL Total Bilirubin 0.5 0.1-1.0 MG/DL Aspartate Amino Transf (AST/SGOT) 9 5-34 U/L Alanine Aminotransferase (ALT/SGPT) 18 0-55 U/L Alkaline Phosphatase 107 40-136 U/L Myoglobin 25.4 10.0-92.0 NG/ML Troponin I < 0.028 < 0.028 <0.028 NG/ML Total Protein 7.5 6.4-8.2 GM/DL Albumin 4.7 H 3.2-4.5 GM/DL My Orders Orders - LAURA MONTEMAYOR Aspirin Chewable Tablet (Baby Aspirin Ch (05/04/19 13:54) Nitroglycerin 0.4 Mg Btl 25's (Nitrostat (05/04/19 13:58) Cbc With Automated Diff (05/04/19 14:00) Magnesium (05/04/19 14:00) Chest 1 View, Ap/Pa Only (05/04/19 14:00) Ekg Tracing (05/04/19 14:00) Cardiac Profile 1 (05/04/19 14:00) Comprehensive Metabolic Panel (05/04/19 14:00) Myoglobin Serum (05/04/19 14:00) Protime With Inr (05/04/19 14:00) Partial Thromboplastin Time (05/04/19 14:00) O2 (05/04/19 14:00) Monitor-Rhythm Ecg Trace Only (05/04/19 14:00) Lipid Panel (05/05/19 06:00) Ed Iv/Invasive Line Start (05/04/19 14:00) Fibrin Degradation Products (05/04/19 14:00) Nitroglycerin 0.4 Mg Btl 25's (Nitrostat (05/04/19 14:00) Aspirin Chewable Tablet (Baby Aspirin Ch (05/04/19 14:00) Lidocaine 2% Viscous 15 Ml (Xylocaine Vi (05/04/19 15:00) Famotidine Tablet (Pepcid Tablet) (05/04/19 14:46) Antacid Suspension (Mylanta Suspension (05/04/19 15:00) Troponin I (05/04/19 15:19) Ketorolac Injection (Toradol Injection) (05/04/19 15:30) Lidocaine 2% Viscous 15 Ml (Xylocaine Vi (05/04/19 16:15) Famotidine Tablet (Pepcid Tablet) (05/04/19 16:07) Antacid Suspension (Mylanta Suspension (05/04/19 16:15) Medications Given in ED Current Medications Medications Dose Ordered Sig/Rhina Route Start Time Stop Time Status Last Admin Dose Admin Al Hydrox/Mg Hydrox/Simethicone 30 ml ONCE ONCE PO 05/04/19 16:15 05/04/19 16:16 DC 05/04/19 16:11 30 ML Aspirin 324 mg ONCE ONCE PO 05/04/19 14:00 05/04/19 14:03 DC 05/04/19 13:57 324 MG Ketorolac Tromethamine 30 mg ONCE ONCE IVP 05/04/19 15:30 05/04/19 15:31 DC 05/04/19 15:39 30 MG Lidocaine HCl 15 ml ONCE ONCE PO 05/04/19 16:15 05/04/19 16:16 DC 05/04/19 16:12 15 ML Nitroglycerin 0.4 mg UD PRN SL 05/04/19 14:00 05/04/19 14:45 0.4 MG Vital Signs/I&O 05/04/19 13:53 Temp 37.0 Pulse 75 Resp 18 B/P (MAP) 135/97 (110) Pulse Ox 98 O2 Delivery Room Air Progress Progress Note #1: Time: 14:11 Progress Note 324 mg of aspirin chewed and swallowed. We'll attempt some nitroglycerin. Coronary disease seems less likely given his age and risk factors however pericarditis/myocarditis, pleurisy and chest wall pain would be much higher on the differential. If nitroglycerin doesn't help we could try NSAIDs. Progress Note #2: Time: 14:48 Progress Note Patient states the initial dose of nitroglycerin did help with his chest pain however it is now coming back so his nurse gave him a second dose. We plan to give him a GI cocktail. Possible esophageal spasm. Labs are unremarkable. Chest x-ray unremarkable. We'll consider NSAIDs if GI cocktail was not helpful. If troponin is normal then heart score of 1. Low risk; 0.91.7% 30-day MACE; Repeat troponin at 3 hours and if negative, discharge home with outpatient follow-up. Progress Note #3: Time: 16:48 Progress Note Patient's pain came back so we gave him a GI cocktail. The GI cocktail didn't help. Plan to put him out on Carafate and omeprazole follow-up with general surgery. Initial ECG Impression Date: May 04, 2019 Initial ECG Impression Time: 13:56 Initial ECG Rate: 68 Initial ECG Rhythm: Normal Sinus Initial ECG Intervals: Normal Initial ECG Impression: Normal, Nonspecific Changes Initial ECG Comparisson: No Previous ECG Available Comment No ST elevation or depression. Diagnostic Imaging Diagonstic Imaging: Xray Plain Films/CT/US/NM/MRI: chest (1v) Comments Unremarkable chest x-ray. NAME: NATI VALADEZ [facility] REC#: [id number] PT STATUS: REG ER : 1995 PHYSICIAN: LAURA MONTEMAYOR MD ADMIT DATE: 05/04/19/ER Draft POSDate of Exam:05/04/19 CHEST 1 VIEW, AP/PA ONLY INDICATION: Chest pain. EXAMINATION: Portable chest at 2:40 p.m. FINDINGS: Heart size and pulmonary vascularity are normal. Lungs are clear. There are no effusions or pneumothoraces. IMPRESSION: Negative chest. Dictated on workstation # [id number] Dict: 05/04/19 1447 Trans: 05/04/19 1448 [id number] Interpreted by: ROMEO THOMPSON MD Electronically signed by: Reviewed: Reviewed by Me Departure Impression Primary Impression: Esophagitis with gastritis Disposition: HOME, SELF-CARE Condition: Stable Departure-Patient Inst. Decision time for Depature: 16:48 Referrals: NIDIA OCAMPO,LOCAL PHYSICIAN (PCP) Primary Care Physician Patient Instructions: Chest Pain That Is Not Caused by the Heart (DC), LOCAL PHYSICIAN LIST, Gastritis (DC) Add. Discharge Instructions: Plan to establish care with a primary care provider and follow-up within the next week or so. Call general surgeon, Dr. Ocampo and obtain an appointment to discuss the possibility of esophagitis and gastritis. Start taking Carafate 1 tablet 30 minutes prior to meals and at bedtime, 4 times a day for the next 2 weeks. Omeprazole 20 mg twice a day for the next 30 days. If you have chest pain you can take Tylenol 1000 mg every 8 hours. You can use topical creams such as icy hot or Biofreeze. For severe, unrelenting pain or other worrisome symptoms please return to the ER. Scripts Omeprazole (Omeprazole) 20 Mg Capsule. 20 MG PO BID for 30 Days, #60 CAP 0 Refills Prov: LAURA MONTEMAYOR 05/04/19 Sucralfate (Carafate) 1 Gm Tablet 1 GM PO QIDACHS for 14 Days, #56 TAB 0 Refills Prov: LAURA MONTEMAYOR 05/04/19 Work/School Note: Work Release Form Date Seen in the Emergency Department: May 04, 2019 Return to Work: May 05, 2019 Restrictions: No Restrictions Copy Copies To 1: NIDIA OCAMPO TITUS J May 04, 2019 14:06 POS
[2019-05-04 14:14] LABS: BASOPHILS % (AUTO) 0 % (0-10); EOSINOPHILS # (AUTO) 0.1 10^3/uL (0.0-0.3); EOSINOPHILS % (AUTO) 1 % (0-10); HEMATOCRIT 44 % (40-54); HEMOGLOBIN 14.9 G/DL (13.3-17.7); LYMPHOCYTES # (AUTO) 1.5 X 10^3 (1.0-4.0); LYMPHOCYTES % (AUTO) 26 % (12-44); MEAN CORPUSCULAR HEMOGLOBIN 27 PG (25-34); MEAN CORPUSCULAR HGB CONC 34 G/DL (32-36); MEAN CORPUSCULAR VOLUME 79 FL (80-99); MEAN PLATELET VOLUME 11.1 FL (7.4-10.4); MONOCYTES # (AUTO) 0.4 X 10^3 (0.0-1.0); MONOCYTES % (AUTO) 8 % (0-12); NEUTROPHILS # (AUTO) 3.8 X 10^3 (1.8-7.8); NEUTROPHILS % (AUTO) 65 % (42-75); PLATELET COUNT 220 10^3/uL (130-400); RED CELL DISTRIBUTION WIDTH 13.5 % (10.0-14.5); WHITE BLOOD COUNT 5.9 10^3/uL (4.3-11.0)
[2019-05-04 14:26] LABS: INR 0.9 (0.8-1.4); PROTHROMBIN TIME PATIENT 12.7 SEC (12.2-14.7)
[2019-05-04 14:36] LABS: ALANINE AMINOTRANSFERASE 18 U/L (0-55); ALBUMIN 4.7 GM/DL (3.2-4.5); ALKALINE PHOSPHATASE 107 U/L (40-136); BILIRUBIN,TOTAL 0.5 MG/DL (0.1-1.0); BUN/CREATININE RATIO 12; CALCIUM 9.4 MG/DL (8.5-10.1); CARBON DIOXIDE 24 MMOL/L (21-32); CHLORIDE 106 MMOL/L (98-107); CREATININE SERUM 0.95 MG/DL (0.60-1.30); GFR ESTIMATED > 60; GLUCOSE 99 MG/DL (70-105); MAGNESIUM 2.2 MG/DL (1.6-2.4); POTASSIUM 3.7 MMOL/L (3.6-5.0); SODIUM 141 MMOL/L (135-145); TOTAL PROTEIN 7.5 GM/DL (6.4-8.2)
[2019-05-04] MEDS ORDERED: FAMOTIDINE 20 MG (PEPCID) TABLET PO STA ×2 (14:46→16:07)
--- NOTE | 2019-05-04 14:49 | Diagnostic Imaging Report ---
INDICATION: Chest pain. EXAMINATION: Portable chest at 2:40 p.m. FINDINGS: Heart size and pulmonary vascularity are normal. Lungs are clear. There are no effusions or pneumothoraces. IMPRESSION: Negative chest. Dictated by: Dictated on workstation # [id number]
[2019-05-04] MEDS ORDERED: ANTACID SUSP 30 ML UDC (MYLANTA) PO ONE ×2 (15:00→16:15)
[2019-05-04] MEDS ORDERED: LIDOCAINE 2% VISCOUS 15 ML UDC PO ONE ×2 (15:00→16:15)
[2019-05-04] MEDS ORDERED: KETOROLAC 30 MG/ML VIAL IVP ONE (15:30)
[2019-05-04] MEDS ORDERED: SUCR1TAB36 PO (16:51)
[2019-05-04] MEDS ORDERED: OMEP20CA13 PO (16:51)
[2019-05-04 17:26] VITALS: BP 116/87
== END 2019-05-04 17:26 | disposition home or self-care (01) ==
LOC: EDUNIT# 13:53 → ER 13:54
DX: K29.70 Gastritis, unspecified, without bleeding (principal); K20.9 Esophagitis, unspecified; F17.220 Nicotine dependence, chewing tobacco, uncomplicated; Z85.47 Personal history of malignant neoplasm of testis
CPT/HCPCS: 36415; 71045; 80053; 83735; 83874; 84484; 85025; 85379; 85610; 85730; 93005; 93041; 96374

== ENCOUNTER 2019-08-04 14:15 | Outpatient (RCR) | payer OTHER ==
[2019-07-31 16:55] LABS: BASOPHILS % (AUTO) 0 % (0-10); EOSINOPHILS # (AUTO) 0.1 10^3/uL (0.0-0.3); EOSINOPHILS % (AUTO) 1 % (0-10); HEMATOCRIT 43 % (40-54); HEMOGLOBIN 14.8 G/DL (13.3-17.7); LYMPHOCYTES # (AUTO) 1.6 X 10^3 (1.0-4.0); LYMPHOCYTES % (AUTO) 28 % (12-44); MEAN CORPUSCULAR HEMOGLOBIN 28 PG (25-34); MEAN CORPUSCULAR HGB CONC 34 G/DL (32-36); MEAN CORPUSCULAR VOLUME 80 FL (80-99); MEAN PLATELET VOLUME 11.1 FL (7.4-10.4); MONOCYTES # (AUTO) 0.3 X 10^3 (0.0-1.0); MONOCYTES % (AUTO) 6 % (0-12); NEUTROPHILS # (AUTO) 3.6 X 10^3 (1.8-7.8); NEUTROPHILS % (AUTO) 64 % (42-75); PLATELET COUNT 204 10^3/uL (130-400); RED CELL DISTRIBUTION WIDTH 13.7 % (10.0-14.5); WHITE BLOOD COUNT 5.6 10^3/uL (4.3-11.0)
[2019-07-31 17:14] LABS: ALANINE AMINOTRANSFERASE 21 U/L (0-55); ALBUMIN 4.6 GM/DL (3.2-4.5); ALKALINE PHOSPHATASE 96 U/L (40-136); BILIRUBIN,TOTAL 0.8 MG/DL (0.1-1.0); BUN/CREATININE RATIO 14; CALCIUM 9.5 MG/DL (8.5-10.1); CARBON DIOXIDE 25 MMOL/L (21-32); CHLORIDE 107 MMOL/L (98-107); CREATININE SERUM 0.91 MG/DL (0.60-1.30); GFR ESTIMATED > 60; GLUCOSE 85 MG/DL (70-105); POTASSIUM 4.1 MMOL/L (3.6-5.0); SODIUM 141 MMOL/L (135-145); TOTAL PROTEIN 7.3 GM/DL (6.4-8.2)
--- NOTE | 2019-07-31 17:28 | Diagnostic Imaging Report ---
INDICATION: Seminoma. Comparison made with prior examination from 05/04/2019. FINDINGS: The heart size, mediastinal configuration, and pulmonary vascularity are within normal limits. There is no pleural effusion, pneumothorax, or pneumonia. The osseous structures are unremarkable. IMPRESSION: No acute cardiopulmonary abnormality. Dictated by: Dictated on workstation # [id number]
[~2019-08-04 14:15] MED LIST changes: +OMEP20CA18 PO; +SUCR1TAB36 PO
== END 2019-10-29 | disposition home or self-care (01) ==
LOC: ONC 14:15
PROVIDERS: ATTEND Internal Medicine Hematology & Oncology
DX: C62.12 Malignant neoplasm of descended left testis (principal); Z90.79 Acquired absence of other genital organ(s); D69.6 Thrombocytopenia, unspecified
CPT/HCPCS: 71046; 80053; 82105; 83615; 84702; 85025; 99213

== ENCOUNTER → 2020-01-19 | Outpatient (CLI) | payer OTHER ==
[~2020-01-19] MED LIST changes: +BARIUM SUSPENSION 2.1% (VANILLA SILQ) 450 ML PO ONE; +HOLD METFORMIN - RECEIVED CONTRAST 20 ML VIAL IV SCH; +IOHEXOL 350 MG/ML 100 ML (OMNIPAQUE 350) VIAL IV ONE; +NS 100 ML (IVPB) BAG IV ONE
--- NOTE | 2020-01-19 19:21 | Diagnostic Imaging Report ---
PROCEDURE: CT abdomen and pelvis with and without contrast. TECHNIQUE: Precontrast acquisitions were acquired through the abdomen and pelvis. Multiple contiguous axial images were obtained through the abdomen and pelvis after the administration of intravenous contrast. Auto Exposure Controls were utilized during the CT exam to meet ALARA standards for radiation dose reduction. DATE: January 19, 2020. COMPARISON: CT abdomen and pelvis February 09, 2019. INDICATION: 24-year-old male, history of testicular cancer. Diagnosis 3 years ago. Completion of chemotherapy. FINDINGS: The visualized portions of the lung bases are clear. The heart is not enlarged. There is no pericardial effusion. The liver is normal in size and contour. There is no identified liver lesion. The main, right and left portal veins are patent. The gallbladder is unremarkable. There is no intrahepatic or extrahepatic bile duct dilation. The main pancreatic duct is not abnormally dilated. Unremarkable appearance of the pancreatic parenchyma. The spleen is normal in size. The adrenal glands are unremarkable. Unremarkable appearance of the renal parenchyma. The urinary collecting systems are not distended. There is no identified renal or ureteral stone. The urinary bladder is unremarkable. The left testicle is surgically absent. The intestinal tract is not distended. The appendix is unremarkable. There is no identified abnormally enlarged lymph node in the abdomen or pelvis which specifically meets CT size criteria for adenopathy. There are mildly prominent bilateral inguinal lymph nodes, measuring 16 mm in short axis on the left on axial image 101 and 16 mm in short axis on the right on axial image 102. There are at least partial internal fatty magdi within both of these lymph nodes. These are unchanged since comparison exam. There are bilateral L5 pars interarticularis defects. There is no current anterolisthesis of L5 on S1. There is no identified bone lesion concerning for bone metastasis. IMPRESSION: CT abdomen and pelvis: 1. No evidence of metastatic disease in the abdomen or pelvis. 2. Bilateral L5 pars interarticularis defects. Dictated by: Dictated on workstation # [id number]
== END ==
LOC: RAD 14:45
PROVIDERS: ATTEND Internal Medicine Hematology & Oncology
DX: C62.90 Malignant neoplasm of unspecified testis, unspecified whether descended or undescended (principal)
CPT/HCPCS: 74178

== ENCOUNTER 2020-01-30 13:53 | Outpatient (RCR) | payer OTHER ==
[2020-01-19 14:42] LABS: BASOPHILS % (AUTO) 0 % (0-10); EOSINOPHILS # (AUTO) 0.1 10^3/uL (0.0-0.3); EOSINOPHILS % (AUTO) 1 % (0-10); HEMATOCRIT 40 % (40-54); HEMOGLOBIN 14.1 G/DL (13.3-17.7); LYMPHOCYTES # (AUTO) 2.5 X 10^3 (1.0-4.0); LYMPHOCYTES % (AUTO) 35 % (12-44); MEAN CORPUSCULAR HEMOGLOBIN 27 PG (25-34); MEAN CORPUSCULAR HGB CONC 35 G/DL (32-36); MEAN CORPUSCULAR VOLUME 79 FL (80-99); MEAN PLATELET VOLUME 11.1 FL (7.4-10.4); MONOCYTES # (AUTO) 0.4 X 10^3 (0.0-1.0); MONOCYTES % (AUTO) 6 % (0-12); NEUTROPHILS # (AUTO) 4.2 X 10^3 (1.8-7.8); NEUTROPHILS % (AUTO) 58 % (42-75); PLATELET COUNT 217 10^3/uL (130-400); WHITE BLOOD COUNT 7.3 10^3/uL (4.3-11.0)
[2020-01-19 15:02] LABS: ALANINE AMINOTRANSFERASE 20 U/L (0-55); ALBUMIN 4.4 GM/DL (3.2-4.5); ALKALINE PHOSPHATASE 84 U/L (40-136); BILIRUBIN,TOTAL 0.5 MG/DL (0.1-1.0); BUN/CREATININE RATIO 14; CARBON DIOXIDE 23 MMOL/L (21-32); CHLORIDE 106 MMOL/L (98-107); CREATININE SERUM 0.91 MG/DL (0.60-1.30); GFR ESTIMATED > 60; GLUCOSE 95 MG/DL (70-105); SODIUM 139 MMOL/L (135-145); TOTAL PROTEIN 7.3 GM/DL (6.4-8.2)
[~2020-01-30 13:53] MED LIST changes: -BARIUM SUSPENSION 2.1% (VANILLA SILQ) 450 ML PO ONE; -HOLD METFORMIN - RECEIVED CONTRAST 20 ML VIAL IV SCH; -IOHEXOL 350 MG/ML 100 ML (OMNIPAQUE 350) VIAL IV ONE; -NS 100 ML (IVPB) BAG IV ONE
== END 2020-03-15 08:20 | disposition home or self-care (01) ==
LOC: ONC 13:53
PROVIDERS: ATTEND Internal Medicine Hematology & Oncology
DX: C62.90 Malignant neoplasm of unspecified testis, unspecified whether descended or undescended (principal)
CPT/HCPCS: 80053; 82105; 83615; 84702; 85025; 99213

== ENCOUNTER 2020-09-12 14:33 | Outpatient (RCR) | payer OTHER ==
[2020-09-04 15:57] LABS: BASOPHILS % (AUTO) 0 % (0-10); EOSINOPHILS # (AUTO) 0.1 10^3/uL (0.0-0.3); EOSINOPHILS % (AUTO) 1 % (0-10); HEMATOCRIT 44 % (40-54); HEMOGLOBIN 14.9 g/dL (13.3-17.7); LYMPHOCYTES # (AUTO) 1.6 X 10^3 (1.0-4.0); LYMPHOCYTES % (AUTO) 31 % (12-44); MEAN CORPUSCULAR HEMOGLOBIN 28 pg (25-34); MEAN CORPUSCULAR HGB CONC 34 g/dL (32-36); MEAN CORPUSCULAR VOLUME 82 fL (80-99); MEAN PLATELET VOLUME 11.1 fL (9.0-12.2); MONOCYTES # (AUTO) 0.3 X 10^3 (0.0-1.0); MONOCYTES % (AUTO) 5 % (0-12); NEUTROPHILS # (AUTO) 3.2 X 10^3 (1.8-7.8); NEUTROPHILS % (AUTO) 62 % (42-75); PLATELET COUNT 208 10^3/uL (130-400); WHITE BLOOD COUNT 5.2 10^3/uL (4.3-11.0)
[2020-09-04 16:18] LABS: ALANINE AMINOTRANSFERASE 15 U/L (0-55); ALBUMIN 4.5 GM/DL (3.2-4.5); ALKALINE PHOSPHATASE 73 U/L (40-136); BILIRUBIN,TOTAL 1.2 MG/DL (0.1-1.0); BUN/CREATININE RATIO 10; CARBON DIOXIDE 22 MMOL/L (21-32); CHLORIDE 108 MMOL/L (98-107); CREATININE SERUM 1.01 MG/DL (0.60-1.30); GFR ESTIMATED > 60; GLUCOSE 143 MG/DL (70-105); POTASSIUM 3.6 MMOL/L (3.6-5.0); SODIUM 141 MMOL/L (135-145); TOTAL PROTEIN 7.3 GM/DL (6.4-8.2)
[~2020-09-12 14:33] MED LIST changes: -CIPR500T4 PO; +CIPR500T5 PO
[2020-09-24] MEDS ORDERED: ONDA8TAB13 PO (12:55)
== END 2020-12-03 | disposition home or self-care (01) ==
LOC: ONC 14:33
PROVIDERS: ATTEND Internal Medicine Hematology & Oncology
DX: C62.90 Malignant neoplasm of unspecified testis, unspecified whether descended or undescended (principal); R73.09 Other abnormal glucose; Z90.79 Acquired absence of other genital organ(s)
CPT/HCPCS: 80053; 82105; 83615; 84702; 85025; 99213

== ENCOUNTER 2020-09-24 11:55 | Emergency (ER) | payer OTHER ==
[~2020-09-24] VITALS: Ht 182 cm; Wt 110.0 kg
--- NOTE | 2020-09-24 12:14 | ED GI ---
General Chief Complaint: Abdominal/GI Problems Stated Complaint: N/V, FREQUENT URINATION Nursing Triage Note: PT CO OF N/V/D SINCE LAST WEDNESDAY, PT STATES FEELS REALLY BAD. PT DENIES FEVER. COUGH OR SOA. DENIES COVID EXPOSURE Sepsis Screen: No Definite Risk Source of Information: Patient Exam Limitations: No Limitations History of Present Illness Date Seen by Provider: Sep 24, 2020 Time Seen by Provider: 12:00 Initial Comments To ER with nausea vomiting diarrhea since last . No fevers or chills or cough or shortness of breath. Denies Covid exposure. History of testicular cancer status post orchiectomy and completion of chemotherapy in 2017. Stools are nonbloody Timing/Duration: 1-2 Days Severity/Quality: Moderate Location: Epigastric Radiation: No Radiation Activities at Onset: None Associated Symptoms: Nausea/Vomiting Allergies and Home Medications Allergies Coded Allergies: No Known Drug Allergies (Unverified , 07/30/14) Home Medications Hydrocodone Bit/Acetaminophen 1 Tab Tab, 1 TAB PO Q6H PRN for PAIN-MODERATE Prescribed by: NIDIA OCAMPO on 08/15/18 0958 Omeprazole 20 Mg Capsule.dr, 20 MG PO BID Prescribed by: LAURA MONTEMAYOR on 05/04/191650 Sucralfate 1 Gm Tablet, 1 GM PO QIDACHS Prescribed by: LAURA MONTEMAYOR on 05/04/191650 Patient Home Medication List Home Medication List Reviewed: Yes Review of Systems Review of Systems Constitutional: see HPI EENTM: No Symptoms Reported Respiratory: No Symptoms Reported Cardiovascular: No Symptoms Reported Gastrointestinal: See HPI, Abdominal Pain, Diarrhea, Nausea Genitourinary: No Symptoms Reported Musculoskeletal: no symptoms reported Skin: no symptoms reported Psychiatric/Neurological: No Symptoms Reported Endocrine: No Symptoms Reported Past Lpjkzqh-Mzyfdq-Wkppon Hx Patient Social History Alcohol Beverage of Choice: Beer Type Used: Smokeless Tobacco 2nd Hand Smoke Exposure: No Recent Infectious Disease Expo: No Recent Hopitalizations: No Immunizations Up To Date Tetanus Booster (TDap): Less than 5yrs PED Vaccines UTD: Yes Seasonal Allergies Seasonal Allergies: No Past Medical History Surgeries: Yes (port) Testicular Respiratory: No Cardiac: No Neurological: No Genitourinary: No Gastrointestinal: No Musculoskeletal: No Endocrine: No HEENT: No Cancer: Yes Testicular What Type of Treatment Did You: Chemotherapy, Surgical Intervention Psychosocial: No Integumentary: No Blood Disorders: No Family Medical History No Pertinent Family Hx Physical Exam Vital Signs Vital Signs - First Documented 09/24/20 12:05 Pulse 98 Resp 20 B/P (MAP) 144/98 (113) Pulse Ox 100 Capillary Refill : Less Than 3 Seconds Height/Weight/BMI Height: 6'1.00" Weight: 200lbs. 0.0oz. 90.134272mq; 33.00 BMI Method:Stated General Appearance: WD/WN, no apparent distress Neck: non-tender, full range of motion Respiratory: lungs clear, normal breath sounds, no respiratory distress, no accessory muscle use Cardiovascular: regular rate, rhythm, no murmur Gastrointestinal: normal bowel sounds, non tender, soft Extremities: normal range of motion, non-tender Neurologic/Psychiatric: alert, normal mood/affect, oriented x 3 Skin: normal color, warm/dry Progress/Results/Core Measures Results/Orders Lab Results Laboratory Tests Test 09/24/20 12:07 09/24/20 12:18 Range/Units Urine Color YELLOW Urine Clarity CLEAR Urine pH 6.0 5-9 Urine Specific [place] >=1.030 1.016-1.022 Urine Protein 1+ H NEGATIVE Urine Glucose (UA) NEGATIVE NEGATIVE Urine Ketones 1+ H NEGATIVE Urine Nitrite NEGATIVE NEGATIVE Urine Bilirubin 1+ H NEGATIVE Urine Urobilinogen 1.0 < = 1.0 MG/DL Urine Leukocyte Esterase NEGATIVE NEGATIVE Urine RBC (Auto) NEGATIVE NEGATIVE Urine RBC NONE /HPF Urine WBC NONE /HPF Urine Crystals PRESENT H /LPF Urine Amorphous Sediment RARE CHANEL URATES H /LPF Urine Bacteria NEGATIVE /HPF Urine Casts NONE /LPF Urine Mucus NEGATIVE /LPF Urine Culture Indicated NO White Blood Count 6.1 4.3-11.0 10^3/uL Red Blood Count 6.00 H 4.30-5.52 10^6/uL Hemoglobin 16.5 13.3-17.7 g/dL Hematocrit 49 40-54 % Mean Corpuscular Volume 82 80-99 fL Mean Corpuscular Hemoglobin 28 25-34 pg Mean Corpuscular Hemoglobin Concent 34 32-36 g/dL Red Cell Distribution Width 12.8 10.0-14.5 % Platelet Count 264 130-400 10^3/uL Mean Platelet Volume 10.6 9.0-12.2 fL Immature Granulocyte % (Auto) 0 % Neutrophils (%) (Auto) 67 42-75 % Lymphocytes (%) (Auto) 19 12-44 % Monocytes (%) (Auto) 10 0-12 % Eosinophils (%) (Auto) 3 0-10 % Basophils (%) (Auto) 0 0-10 % Neutrophils # (Auto) 4.1 1.8-7.8 10^3/uL Lymphocytes # (Auto) 1.2 1.0-4.0 10^3/uL Monocytes # (Auto) 0.6 0.0-1.0 10^3/uL Eosinophils # (Auto) 0.2 0.0-0.3 10^3/uL Basophils # (Auto) 0.0 0.0-0.1 10^3/uL Immature Granulocyte # (Auto) 0.0 0.0-0.1 10^3/uL Sodium Level 140 135-145 MMOL/L Potassium Level 3.8 3.6-5.0 MMOL/L Chloride Level 105 98-107 MMOL/L Carbon Dioxide Level 24 21-32 MMOL/L Anion Gap 11 5-14 MMOL/L Blood Urea Nitrogen 10 7-18 MG/DL Creatinine 0.93 0.60-1.30 MG/DL Estimat Glomerular Filtration Rate > 60 BUN/Creatinine Ratio 11 Glucose Level 100 70-105 MG/DL Calcium Level 9.1 8.5-10.1 MG/DL Corrected Calcium 8.5-10.1 MG/DL Total Bilirubin 0.6 0.1-1.0 MG/DL Aspartate Amino Transf (AST/SGOT) 13 5-34 U/L Alanine Aminotransferase (ALT/SGPT) 21 0-55 U/L Alkaline Phosphatase 71 40-136 U/L Total Protein 7.8 6.4-8.2 GM/DL Albumin 4.8 H 3.2-4.5 GM/DL Lipase 15 8-78 U/L My Orders Orders - CHANO HAMM APRN Ua Culture If Indicated (09/24/20 11:57) Cbc With Automated Diff (09/24/20 11:57) Comprehensive Metabolic Panel (09/24/20 11:57) Lipase (09/24/20 11:57) Ed Iv/Invasive Line Start (09/24/20 11:57) Lactated Ringers (Lr 1000 Ml Iv Solution (09/24/20 12:15) Ondansetron Injection (Zofran Injectio (09/24/20 12:15) Hyoscyamine Sl Tablet (Levsin Sl Tablet) (09/24/20 12:15) Medications Given in ED Current Medications Medications Dose Ordered Sig/Rhina Route Start Time Stop Time Status Last Admin Dose Admin Hyoscyamine Sulfate 0.25 mg ONCE ONCE PO 09/24/20 12:15 09/24/20 12:16 DC 09/24/20 12:21 0.25 MG Ondansetron HCl 8 mg ONCE ONCE IVP 09/24/20 12:15 09/24/20 12:16 DC 09/24/20 12:21 8 MG Vital Signs/I&O 09/24/20 12:05 Pulse 98 Resp 20 B/P (MAP) 144/98 (113) Pulse Ox 100 Blood Pressure Mean: 113 Departure Impression Primary Impression: Gastroenteritis Disposition: 01 HOME, SELF-CARE Condition: Stable Departure-Patient Inst. Decision time for Depature: 12:53 Referrals: NO,LOCAL PHYSICIAN (PCP/Family) Primary Care Physician Patient Instructions: [id number] Add. Discharge Instructions: 1. Return to ER for any concerns. Follow-up with your doctor later this week. Nausea medication as directed. You can use [id number] Imodium for diarrhea control. You should also start up on some Pedialyte to help stay hydrated and sip on that constantly throughout the day.. All discharge instructions reviewed with patient and/or family. Voiced understanding. Scripts Ondansetron (Ondansetron Odt) 8 Mg Tab.rapdis 8 MG PO Q6H PRN for NAUSEA/VOMITING, #20 TAB Prov: CHANO HAMM APRN 09/24/20 Work/School Note: Work Release Form Date Seen in the Emergency Department: Sep 24, 2020 Return to Work: Sep 26, 2020 CHANO HAMM APRN Sep 24, 2020 12:14
[2020-09-24] MEDS ORDERED: LACTATED RINGERS 1,000 ML IV SCH (12:15)
[2020-09-24] MEDS ORDERED: HYOSCYAMINE 0.125 MG (LEVSIN) TAB PO ONE (12:15)
[2020-09-24] MEDS ORDERED: ONDANSETRON 4 MG/2 ML (SDV) Z0FRAN IVP ONE (12:15)
[2020-09-24 12:27] LABS: BASOPHILS % (AUTO) 0 % (0-10); EOSINOPHILS # (AUTO) 0.2 10^3/uL (0.0-0.3); EOSINOPHILS % (AUTO) 3 % (0-10); HEMATOCRIT 49 % (40-54); HEMOGLOBIN 16.5 g/dL (13.3-17.7); LYMPHOCYTES # (AUTO) 1.2 10^3/uL (1.0-4.0); LYMPHOCYTES % (AUTO) 19 % (12-44); MEAN CORPUSCULAR HEMOGLOBIN 28 pg (25-34); MEAN CORPUSCULAR HGB CONC 34 g/dL (32-36); MEAN CORPUSCULAR VOLUME 82 fL (80-99); MEAN PLATELET VOLUME 10.6 fL (9.0-12.2); MONOCYTES # (AUTO) 0.6 10^3/uL (0.0-1.0); MONOCYTES % (AUTO) 10 % (0-12); NEUTROPHILS # (AUTO) 4.1 10^3/uL (1.8-7.8); NEUTROPHILS % (AUTO) 67 % (42-75); PLATELET COUNT 264 10^3/uL (130-400); WHITE BLOOD COUNT 6.1 10^3/uL (4.3-11.0)
[2020-09-24 12:27] LABS: CLARITY,URINE CLEAR; COLOR,URINE YELLOW; GLUCOSE, URINE (UA) NEGATIVE (NEGATIVE); KETONES,URINE 1+ (NEGATIVE); LEUKOCYTE ESTERASE ,URINE NEGATIVE (NEGATIVE); NITRITE,URINE NEGATIVE (NEGATIVE); PROTEIN,URINE 1+ (NEGATIVE)
[2020-09-24 12:34] LABS: ALBUMIN 4.8 GM/DL (3.2-4.5)
[2020-09-24 12:35] LABS: CHLORIDE 105 MMOL/L (98-107); POTASSIUM 3.8 MMOL/L (3.6-5.0); SODIUM 140 MMOL/L (135-145)
[2020-09-24 12:36] LABS: CALCIUM 9.1 MG/DL (8.5-10.1)
[2020-09-24 12:37] LABS: GLUCOSE 100 MG/DL (70-105); TOTAL PROTEIN 7.8 GM/DL (6.4-8.2)
[2020-09-24 12:38] LABS: CARBON DIOXIDE 24 MMOL/L (21-32)
[2020-09-24 12:39] LABS: BILIRUBIN,TOTAL 0.6 MG/DL (0.1-1.0)
[2020-09-24 12:40] LABS: ALKALINE PHOSPHATASE 71 U/L (40-136)
[2020-09-24 12:41] LABS: CREATININE SERUM 0.93 MG/DL (0.60-1.30); GFR ESTIMATED > 60
[2020-09-24 12:42] LABS: AMORPHOUS SEDIMENT,UR RARE AMOR URATES /LPF; BACTERIA,URINE NEGATIVE /HPF
[2020-09-24 12:42] LABS: BUN/CREATININE RATIO 11
[2020-09-24 12:43] LABS: BILIRUBIN,URINE 1+ (NEGATIVE)
[2020-09-24 12:44] LABS: ALANINE AMINOTRANSFERASE 21 U/L (0-55); LIPASE 15 U/L (8-78)
[2020-09-24] MEDS ORDERED: ONDA8TAB13 PO (12:55)
[2020-09-24 13:29] VITALS: BP 144/98
== END 2020-09-24 13:29 | disposition home or self-care (01) ==
LOC: EDUNIT# 11:55 → ER 11:57
DX: K52.9 Noninfective gastroenteritis and colitis, unspecified (principal); I10 Essential (primary) hypertension; Z85.47 Personal history of malignant neoplasm of testis
CPT/HCPCS: 36415; 80053; 81000; 83690; 85025

== ENCOUNTER 2021-03-13 15:01 | Outpatient (RCR) | payer OTHER ==
[2021-03-07 12:02] LABS: BASOPHILS % (AUTO) 0 % (0-10); EOSINOPHILS # (AUTO) 0.1 10^3/uL (0.0-0.3); EOSINOPHILS % (AUTO) 2 % (0-10); HEMATOCRIT 47 % (40-54); HEMOGLOBIN 15.4 g/dL (13.3-17.7); LYMPHOCYTES # (AUTO) 1.7 10^3/uL (1.0-4.0); LYMPHOCYTES % (AUTO) 25 % (12-44); MEAN CORPUSCULAR HEMOGLOBIN 28 pg (25-34); MEAN CORPUSCULAR HGB CONC 33 g/dL (32-36); MEAN CORPUSCULAR VOLUME 85 fL (80-99); MONOCYTES # (AUTO) 0.4 10^3/uL (0.0-1.0); MONOCYTES % (AUTO) 6 % (0-12); NEUTROPHILS # (AUTO) 4.7 10^3/uL (1.8-7.8); NEUTROPHILS % (AUTO) 67 % (42-75); PLATELET COUNT 216 10^3/uL (130-400)
[2021-03-07 12:31] LABS: ALANINE AMINOTRANSFERASE 24 U/L (0-55); ALBUMIN 4.7 GM/DL (3.2-4.5); ALKALINE PHOSPHATASE 63 U/L (40-136); BILIRUBIN,TOTAL 0.9 MG/DL (0.1-1.0); BUN/CREATININE RATIO 11; CALCIUM 9.9 MG/DL (8.5-10.1); CARBON DIOXIDE 25 MMOL/L (21-32); CHLORIDE 105 MMOL/L (98-107); CREATININE SERUM 0.82 MG/DL (0.60-1.30); GFR ESTIMATED 115; GLUCOSE 95 MG/DL (70-105); POTASSIUM 4.1 MMOL/L (3.6-5.0); SODIUM 139 MMOL/L (135-145); TOTAL PROTEIN 7.5 GM/DL (6.4-8.2)
[~2021-03-13 15:01] MED LIST changes: +ONDA8TAB13 PO
== END 2021-06-05 | disposition home or self-care (01) ==
LOC: ONC 15:01
PROVIDERS: ATTEND Internal Medicine Hematology & Oncology
DX: C62.90 Malignant neoplasm of unspecified testis, unspecified whether descended or undescended (principal); R73.09 Other abnormal glucose; Z90.79 Acquired absence of other genital organ(s)
CPT/HCPCS: 80053; 82105; 83615; 84702; 85025; 99213

== ENCOUNTER 2021-06-11 11:41 | Emergency (ER) | payer OTHER ==
[~2021-06-11] VITALS: Ht 185.5 cm; Wt 90.7 kg
--- NOTE | 2021-06-11 13:38 | ED Cough/URI ---
General Chief Complaint: COVID19 Suspect/Confirmed Stated Complaint: CASTELLANOS,CONGESTION,N/V Nursing Triage Note: PT AMB TO TRIAGE WITH COMPLAINT OF HEADACHE AND RUNNY NOSE. STATES WAS EXPOSED TO COWORKER LAST WEEK WHO TESTED POSITIVE OVER THE WEEKEND. STATES STARTED WITH SYMPTOMS YESTERDAY. (KEERTHI COFFEY) History of Present Illness Date Seen by Provider: Jun 11, 2021 Time Seen by Provider: 12:30 Initial Comments 25-year-old male presents for Covid testing so he can return to work. He states since 06/09/2021 he has had some sinus congestion and occasional headache. He denies any fevers. He has not received the COVID or flu vaccines. He was exposed to Covid last week by a coworker. No chronic health concerns, he had testicular cancer approximately 5 years ago. Timing/Duration: yesterday Severity/Quality: mild, dry cough Prior Episodes/Possible Cause: no prior episodes Associated Symptoms: cough, headache (KEERTHI COFFEY) Allergies and Home Medications Allergies Coded Allergies: No Known Drug Allergies (Unverified , 07/30/14) Patient Home Medication List Home Medication List Reviewed: Yes (KEERTHI COFFEY) Hydrocodone Bit/Acetaminophen (Lortab 5 Mg Tablet) 1 Tab Tab, 1 TAB PO Q6H PRN for PAIN-MODERATE Prescribed by: NIDIA OCAMPO on 08/15/18 0958 Omeprazole (Omeprazole) 20 Mg Capsule.dr, 20 MG PO BID Prescribed by: LAURA MONTEMAYOR on 05/04/19 1651 Ondansetron (Ondansetron Odt) 8 Mg Tab.rapdis, 8 MG PO Q6H PRN for NAUSEA/VOMITING Prescribed by: CHANO HAMM on 09/24/20 1255 Sucralfate (Carafate) 1 Gm Tablet, 1 GM PO QIDACHS Prescribed by: LAURA MONTEMAYOR on 05/04/19 1651 Review of Systems Review of Systems Constitutional: no symptoms reported, see HPI; No fever, No malaise, No weakness EENTM: see HPI, nose congestion Respiratory: see HPI, cough (KEERTHI COFFEY) All Other Systems Reviewed Negative Unless Noted: Yes (KEERTHI COFFEY) Past Udufqgz-Tvelty-Nzpwfc Hx Patient Social History Tobacco Use?: No Use of E-Cig and/or Vaping dev: Yes Substance use?: No Alcohol Use?: No Pt feels they are or have been: No (KEERTHI COFFEY) Immunizations Up To Date Tetanus Booster (TDap): Less than 5yrs PED Vaccines UTD: Yes (KEERTHI COFFEY) Seasonal Allergies Seasonal Allergies: No (KEERTHI COFFEY) Past Medical History Surgeries: Yes (port) Testicular Respiratory: No Cardiac: No Neurological: No Genitourinary: No Gastrointestinal: No Musculoskeletal: No Endocrine: No HEENT: No Cancer: Yes Testicular What Type of Treatment Did You: Chemotherapy, Surgical Intervention Psychosocial: No Integumentary: No Blood Disorders: No (KEERTHI COFFEY) Family Medical History Reviewed Nursing Family Hx (KEERTHI COFFEY) No Pertinent Family Hx (KEERTHI COFFEY) Physical Exam Vital Signs - First Documented 06/11/21 12:20 Temp 36.9 Pulse 63 Resp 20 B/P (MAP) 113/74 (87) Pulse Ox 100 O2 Delivery Room Air (DASH VANESSA MD) Capillary Refill : Less Than 3 Seconds (ALEXXKEERTHI Loya) Height: 6'1.00" Weight: 200lbs. 0.0oz. 90.764172qf; 26.00 BMI Method:Stated General Appearance: WD/WN, no apparent distress HEENT: PERRL/EOMI, normal ENT inspection, TMs normal, pharynx normal Neck: non-tender, full range of motion, supple, normal inspection Respiratory: chest non-tender, lungs clear, normal breath sounds Cardiovascular: normal peripheral pulses Gastrointestinal: normal bowel sounds, non tender, soft Neurologic/Psychiatric: no motor/sensory deficits, alert, normal mood/affect, oriented x 3 Skin: normal color, warm/dry (KEERTHI COFFEY) Progress/Results/Core Measures Suspected Sepsis SIRS Temperature: Pulse: 63 Respiratory Rate: 20 Blood Pressure 113 /74 Mean: 87 (KEERTHI COFFEY) Results/Orders Lab Results Laboratory Tests Test 06/11/21 12:20 Range/Units Influenza Type A (RT-PCR) Not Detected Not Detecte Influenza Type B (RT-PCR) Not Detected Not Detecte SARS-CoV-2 RNA (RT-PCR) Detected H Not Detecte (DASH VANESSA MD) My Orders Orders - DASH VANESSA MD Covid 19 Inhouse Test (06/11/21 11:43) Influenza A And B By Pcr (06/11/21 11:43) (DASH VANESSA MD) Vital Signs/I&O 06/11/21 06/11/21 12:20 13:48 Temp 36.9 36.9 Pulse 63 63 Resp 20 20 B/P (MAP) 113/74 (87) 113/74 Pulse Ox 100 100 O2 Delivery Room Air Room Air (DASH VANESSA MD) Vital Signs/I&O Capillary Refill : Less Than 3 Seconds (KEERTHI COFFEY) Blood Pressure Mean: 87 Departure Impression Primary Impression: COVID-19 Disposition: 01 HOME, SELF-CARE Condition: Stable Departure-Patient Inst. Decision time for Depature: 13:30 (KEERTHI COFFEY) Referrals: [facility],LOCAL PHYSICIAN (PCP) Primary Care Physician Patient Instructions: COVID-19 (DC) Add. Discharge Instructions: You have COVID, the [facility] Dept will notify you of isolation and quarantine rules. You need to stay home, until you receive the letter. Notify any close contacts, from 48 hours prior to your symptoms. They do not need tested, unless they are having symptoms and can be tested at various sites in [facility], The Emergency Dept is for life-threatening concerns related to COVID. Take aspirin 81 mg daily. Increase water intake, 16 ounces every 2 hours while awake. Ambulate hourly while awake and take deep breaths. Take a immune multivitamin that has zinc, vitamin C and vitamin D. Alternate between Tylenol 650 mg and ibuprofen 600 mg every 4 hours for fever or generalized discomforts. Sleep on your stomach. Call your primary care provider if symptoms are not improving or worsen All discharge instructions reviewed with patient and/or family. Voiced understanding. ATTENDING PHYSICIAN NOTE: I was physically present as attending physician in the emergency department during the care of this patient, but I was not directly involved in the decision making or delivery of care for this patient. (DASH VANESSA MD) KEERTHI COFFEY Jun 11, 2021 13:38 DASH VANESSA MD Jun 11, 2021 21:03
[2021-06-11 13:48] VITALS: BP 113/74
== END 2021-06-11 13:48 | disposition home or self-care (01) ==
LOC: EDUNIT# 11:41 → ER 11:42
DX: U07.1 COVID-19 (principal)
CPT/HCPCS: 87636; 99283

== ENCOUNTER 2022-04-15 12:06 | Outpatient (RCR) | payer OTHER ==
[2022-04-15 13:19] LABS: BASOPHILS % (AUTO) 0 % (0-10); EOSINOPHILS % (AUTO) 1 % (0-10); HEMATOCRIT 48 % (40-54); HEMOGLOBIN 16.3 g/dL (13.3-17.7); LYMPHOCYTES % (AUTO) 32 % (12-44); MEAN CORPUSCULAR HEMOGLOBIN 28 pg (25-34); MEAN CORPUSCULAR HGB CONC 34 g/dL (32-36); MEAN CORPUSCULAR VOLUME 80 fL (80-99); MEAN PLATELET VOLUME 10.3 fL (9.0-12.2); MONOCYTES # (AUTO) 0.3 10^3/uL (0.0-1.0); MONOCYTES % (AUTO) 5 % (0-12); NEUTROPHILS # (AUTO) 3.9 10^3/uL (1.8-7.8); NEUTROPHILS % (AUTO) 62 % (42-75); PLATELET COUNT 243 10^3/uL (130-400); WHITE BLOOD COUNT 6.3 10^3/uL (4.3-11.0)
[2022-04-15 13:35] LABS: ALBUMIN 4.7 GM/DL (3.2-4.5); CHLORIDE 104 MMOL/L (98-107); POTASSIUM 3.6 MMOL/L (3.6-5.0); SODIUM 138 MMOL/L (135-145)
[2022-04-15 13:36] LABS: CALCIUM 9.4 MG/DL (8.5-10.1)
[2022-04-15 13:38] LABS: GLUCOSE 103 MG/DL (70-105); TOTAL PROTEIN 7.8 GM/DL (6.4-8.2)
[2022-04-15 13:39] LABS: CARBON DIOXIDE 25 MMOL/L (21-32)
[2022-04-15 13:40] LABS: BILIRUBIN,TOTAL 1.3 MG/DL (0.1-1.0)
[2022-04-15 13:41] LABS: ALKALINE PHOSPHATASE 62 U/L (40-136); CREATININE SERUM 0.99 MG/DL (0.60-1.30); GFR ESTIMATED 108
[2022-04-15 13:42] LABS: BUN/CREATININE RATIO 9
[2022-04-15 13:44] LABS: ALANINE AMINOTRANSFERASE 15 U/L (0-55)
== END 2022-04-20 | disposition home or self-care (01) ==
LOC: ONC 12:06
PROVIDERS: ATTEND Internal Medicine Hematology & Oncology
DX: C62.92 Malignant neoplasm of left testis, unspecified whether descended or undescended (principal); E66.9 Obesity, unspecified
CPT/HCPCS: 36415; 80053; 82105; 83615; 84702; 85025

== ENCOUNTER 2022-04-30 15:04 | Outpatient (RCR) | payer OTHER | END 2022-05-20 | disposition home or self-care (01) | LOC: ONC 15:04 | PROVIDERS: ATTEND Internal Medicine Hematology & Oncology | DX: C62.92 Malignant neoplasm of left testis, unspecified whether descended or undescended (principal); E66.9 Obesity, unspecified; Z90.79 Acquired absence of other genital organ(s) | CPT/HCPCS: 99213 ==

== ENCOUNTER → 2023-04-20 | Outpatient (RCR) | payer SELFPAY ==
[2023-04-20 15:43] LABS: BASOPHILS % (AUTO) 1 % (0-10); EOSINOPHILS # (AUTO) 0.1 10^3/uL (0.0-0.3); EOSINOPHILS % (AUTO) 2 % (0-10); HEMATOCRIT 45 % (40-54); HEMOGLOBIN 14.9 g/dL (13.3-17.7); LYMPHOCYTES # (AUTO) 1.9 10^3/uL (1.0-4.0); LYMPHOCYTES % (AUTO) 34 % (12-44); MEAN CORPUSCULAR HEMOGLOBIN 28 pg (25-34); MEAN CORPUSCULAR HGB CONC 33 g/dL (32-36); MEAN CORPUSCULAR VOLUME 83 fL (80-99); MEAN PLATELET VOLUME 11.1 fL (9.0-12.2); MONOCYTES # (AUTO) 0.4 10^3/uL (0.0-1.0); MONOCYTES % (AUTO) 7 % (0-12); NEUTROPHILS # (AUTO) 3.2 10^3/uL (1.8-7.8); NEUTROPHILS % (AUTO) 56 % (42-75); PLATELET COUNT 213 10^3/uL (130-400); WHITE BLOOD COUNT 5.7 10^3/uL (4.3-11.0)
[2023-04-20 16:07] LABS: ALBUMIN 4.5 GM/DL (3.2-4.5); BILIRUBIN,TOTAL 0.6 MG/DL (0.1-1.0); CALCIUM 9.4 MG/DL (8.5-10.1); CREATININE SERUM 0.89 MG/DL (0.60-1.30); TOTAL PROTEIN 7.2 GM/DL (6.4-8.2)
== END | disposition home or self-care (01) ==
LOC: ONC 15:24
PROVIDERS: ATTEND Internal Medicine Hematology & Oncology
DX: C62.92 Malignant neoplasm of left testis, unspecified whether descended or undescended (principal); E66.9 Obesity, unspecified; Z90.79 Acquired absence of other genital organ(s)
CPT/HCPCS: 80053; 82105; 83615; 84702; 85025